=== PATIENT | female | born 1965 | race Caucasian/White ===

== ENCOUNTER → 2018-01-30 13:12 | Outpatient (CLI) | payer OTHER, MEDICAID, SELFPAY ==
--- NOTE | 2018-01-30 | DI.US.S_ITS ---
ULTRASOUND OF LEFT BREAST: 01/30/2018 CLINICAL: Left axillary pain. Comparison is made to exams dated: 01/30/2018 mammogram, 09/07/2015 mammogram, and 05/21/2014 mammogram - [facility]. Color flow ultrasound of the left breast was performed. Gomez scale images of the real-time examination were reviewed. IMPRESSION: NEGATIVE There is no sonographic evidence of malignancy. There is no abnormality seen in the right breast or in either axilla to correspond with the area of clinical concern in axillae, however, clinical followup is recommended. A 1 year screening mammogram is recommended. This exam was interpreted at Station ID: [id number]. Electronically Signed By: Mason jim/portia:01/30/2018 16:29:51 letter sent: Clinical Evaluation Ultrasound BI-RADS: 1 Negative
--- NOTE | 2018-01-30 13:13 | DI.MG.S_ITS ---
BILATERAL DIGITAL DIAGNOSTIC MAMMOGRAM 3D/2D: 01/30/2018 CLINICAL: Right breast lump and bilateral axilla pain. Comparison is made to exams dated: 09/07/2015 mammogram, 05/21/2014 mammogram, and 07/27/2011 mammogram - [facility]. There are scattered fibroglandular elements in both breasts. No significant masses, calcifications, or other findings are seen in either breast. IMPRESSION: INCOMPLETE: NEEDS ADDITIONAL IMAGING EVALUATION There is no abnormality seen in the right breast or in either axilla to correspond with the area of clinical concern in axillae, however, ultrasound is recommended. This exam was interpreted at Station ID: [id number]. NOTE: For mammograms, a report in lay terms will be sent to the patient. Approximately 15% of breast malignancies will not be visualized mammographically. In the management of a palpable breast mass, a negative mammogram must not discourage biopsy of a clinically suspicious lesion. Electronically Signed By: Mason jim/portia:01/30/2018 16:29:02 ACR BI-RADS Category 0: Incomplete [id number]
--- NOTE | 2018-01-30 13:13 | DI.US.S_ITS ---
ULTRASOUND OF RIGHT BREAST: 01/30/2018 CLINICAL: Palpable right breast lump. Comparison is made to exams dated: 01/30/2018 mammogram and 09/07/2015 mammogram - [facility]. Color flow ultrasound of the right breast was performed. Gomez scale images of the real-time examination were reviewed. IMPRESSION: NEGATIVE There is no sonographic evidence of malignancy. There is no abnormality seen in the right breast or in either axilla to correspond with the area of clinical concern in axillae, however, clinical followup is recommended. A 1 year screening mammogram is recommended. This exam was interpreted at Station ID: [id number]. Electronically Signed By: Mason jim/portia:01/30/2018 16:29:28 letter sent: Clinical Evaluation Ultrasound BI-RADS: 1 Negative
== END ==
PROVIDERS: Family Provider Family Medicine; PCP Family Medicine; Visit Provider Family Medicine
DX: R92.8 Other abnormal and inconclusive findings on diagnostic imaging of breast (principal); N63.10 Unspecified lump in the right breast, unspecified quadrant; M79.622 Pain in left upper arm; M79.621 Pain in right upper arm
CPT/HCPCS: 76642; 76882; 77066; G0279

== ENCOUNTER → 2018-09-18 19:42 | Outpatient (CLI) | payer OTHER, MEDICAID, SELFPAY ==
--- NOTE | 2018-09-18 19:48 | DI.RAD.S_ITS ---
PROCEDURE: XR LUMBAR SPINE 2-3V INDICATIONS: left hip pain TECHNIQUE: 3 views of the lumbar spine were acquired. COMPARISON: None. FINDINGS: Bones: 5 [id number] vertebrae are present. There is normal bony alignment. No vertebral body compression fractures. No suspicious bony lesions. There is severe facet arthropathy at L5-S1. Soft tissues: Overlying bowel gas pattern is normal. Vascular calcifications consistent with atherosclerosis. IMPRESSION: Severe facet arthropathy at L5-S1. Dictated by: Mega Brito M.D. on 09/19/2018 at 9:06 Approved by: Mega Brito M.D. on 09/19/2018 at 9:08
--- NOTE | 2018-09-18 19:48 | DI.RAD.S_ITS ---
PROCEDURE: XR HIP W PEL 3V INDICATIONS: left hip pain TECHNIQUE: AP pelvis with lateral view(s) of the right and left hip(s). COMPARISON: None. FINDINGS: Bones: No fractures or dislocations. Pelvic ring appears intact. Subtle lucency and cortical irregularity of the proximal femoral diaphysis. There is mild symmetric hip joint degeneration. Soft tissues: The visualized bowel gas pattern is normal. No suspicious soft tissue calcifications. IMPRESSION: 1. Subtle lucency and cortical irregularity of the proximal femoral diaphysis. MRI with and without contrast is suggested for further evaluation. 2. Mild symmetric hip joint degeneration bilaterally. Dictated by: Mega Briot M.D. on 09/19/2018 at 9:08 Approved by: Mega Brito M.D. on 09/19/2018 at 9:11
== END ==
PROVIDERS: PCP Family Medicine; Visit Provider Family Medicine
DX: M25.552 Pain in left hip (principal); M16.0 Bilateral primary osteoarthritis of hip; M47.817 Spondylosis without myelopathy or radiculopathy, lumbosacral region
CPT/HCPCS: 72100; 73522

== ENCOUNTER → 2018-10-07 15:45 | Outpatient (CLI) | payer OTHER, MEDICAID, SELFPAY ==
--- NOTE | 2018-10-07 15:49 | DI.MRI.S_ITS ---
PROCEDURE: MR HIP LT WO/W CON INDICATIONS: subtle lucency of left hip on xray, left hip pain TECHNIQUE: Noncontrast coronal T1 spin echo and STIR through the bony pelvis. Coronal and axial T2 fast spin echo with fat saturation, axial T1 spin echo with fat saturation, sagittal T1 spin echo, and oblique axial T2 fast spin echo with fat saturation through the hip. Post-contrast axial, coronal, and sagittal spin echo with fat saturation through the hip. COMPARISON: None. FINDINGS: Image quality: Excellent. Bones and joints: Mild osteoarthritic changes in bilateral hip joints are seen with joint space narrowing superiorly. There is marrow edema involving left femoral neck extending to hand And and superior portion of femoral head. No definite discrete fracture line is identified. Mild contrast enhancement in left femoral neck is seen. No other suspicious osseous enhancement. No other area of abnormal marrow signal. No avascular necrosis of the femoral heads. The visualized lower lumbar spine appears normally aligned. Tendons and ligaments: The gluteus medius and minimus tendons appear intact, without associated muscle atrophy. The nearby proximal iliotibial band also appears intact. The iliopsoas tendon appears intact, without adjacent bursal fluid collections or evidence for impingement syndrome. The origin of the hamstring tendon is intact at the ischial tuberosity, as well as the associated sacrotuberous ligament. The straight and reflected heads of the rectus femoris muscle origin appear intact, as well as the conjoint tendon. The ligamentum teres appears intact where visualized. Labrum and cartilage: The acetabular labrum appears intact in the absence of intra-articular contrast. Cartilage surface of the femoral head appears of normal thickness. The alpha angle of the femur is within normal limits at less than 55 degrees. Soft tissues: No suspicious soft tissue enhancement. Visualized muscles demonstrate normal bulk and internal signal. Quadratus femoris muscle demonstrates no internal edema to suggest ischiofemoral impingement. The proximal sciatic neurovascular bundle appears normal adjacent to the hamstring tendons. No free pelvic fluid. Bladder wall thickness is normal. Genitourinary structures and bowel loops appear normal where visualized. IMPRESSION: 1. Marrow edema involving left femoral neck as well as the upper portion of left femoral head. No definite discrete fracture line is seen. Finding could represent stress fracture in this region versus transient osteoporosis of left hip. Clinical correlation and followup MRI in 2-3 month is recommended. 2. Symmetric appearing mild bilateral hip joint osteophytes. No evidence of avascular necrosis of femoral heads. 3. Proximal left femoral shaft diaphysis appears normal in signal and cortical thickness. No periosteal reaction. No abnormal intraosseous enhancement. 4. No gross focal left hip labral tear. No gross left hip muscle or tendon signal abnormality. Dictated by: Basilio Page M.D. on 10/07/2018 at 16:52 Approved by: Basilio Page M.D. on 10/07/2018 at 17:03
== END ==
PROVIDERS: Family Provider Family Medicine; PCP Family Medicine; Visit Provider Family Medicine
DX: M25.552 Pain in left hip (principal); G89.29 Other chronic pain; M25.752 Osteophyte, left hip; M25.751 Osteophyte, right hip
CPT/HCPCS: 73723; A9579

== ENCOUNTER → 2018-11-12 15:53 | Outpatient (CLI) | payer OTHER, MEDICAID, SELFPAY | PROVIDERS: PCP Family Medicine; Visit Provider Family Medicine | DX: M25.552 Pain in left hip (principal); G89.29 Other chronic pain; R93.7 Abnormal findings on diagnostic imaging of other parts of musculoskeletal system; Z53.9 Procedure and treatment not carried out, unspecified reason ==

== ENCOUNTER 2018-12-01 13:23 | Emergency (ER) | payer OTHER, MEDICAID, SELFPAY ==
[2018-12-01 13:30] VITALS: BP 135/87; PULSE 85; RESP 20; TEMP 36.4; O2SAT 95; BMI 29.9
--- NOTE | 2018-12-01 15:00 | ED_ITS ---
HPI - Dental/Oral <MARGARITA Mcgee - Last Filed: 12/01/18 16:25> General Chief complaint: Dental/Oral Stated complaint: Front rt tooth loose, swelling Time Seen by Provider: 12/01/18 14:51 Source: patient and family Mode of arrival: ambulatory Limitations: no limitations History of Present Illness HPI Narrative: The patient is a 52-year-old female who is a current everyday smoker with history of osteoarthritis who presents with a chief complaint of right front tooth pain. She states she has had pain and swelling for 2 days. She has not followed up with a dentist. She is taking ibuprofen as well as her tramadol for this pain. She denies any overt measured fevers nausea vomiting diarrhea but states she feels flushed at times. She states the pain radiates up and it feels ?poofy Related Data Previous Rx's Medication Instructions Recorded tramadol 50 mg tablet 50 mg PO Q6H PRN #30 tab 10/23/18 penicillin V potassium 500 mg PO QID 10 Days #40 tab 12/01/18 Allergies Allergy/AdvReac Type Severity Reaction Status Date / Time Diphenhydramine Allergy Mild HIVES Uncoded 11/28/17 12:18 LANOLIN Allergy Mild RASH Uncoded 11/28/17 12:18 Review of Systems <MARGARITA Mcgee - Last Filed: 12/01/18 16:25> Review of Systems GENERAL: See HPI HEENT: See HPI RESPIRATORY: Denies dyspnea, cough, wheezing, hemoptysis, sputum. CARDIOVASCULAR: Denies chest pain, palpitations, orthopnea, edema, GASTROINTESTINAL: Denies nausea, vomiting, abdominal pain, diarrhea, constipation, melena. : Denies dysuria, frequency, incontinence, hematuria, urinary retention. MUSCULOSKELETAL: denies weakness, joint pain, or bony pain SKIN: Denies rash, skin lesions, or other NEUROLOGIC: Denies weakness, headache, numbness, change in speech, confusion, seizures, incoordination. PSYCHIATRIC: No concerning psychosocial issues. 12 point review of systems is negative except for those stated above PFSH <MARGARITA Mcgee - Last Filed: 12/01/18 16:25> Social History Smoking Status: Current every day smoker Social History Smoking Status: Current every day smoker Exam <MARGARITA Mcgee - Last Filed: 12/01/18 16:25> Narrative Exam Narrative: GENERAL: Elderly female lying on stretcher HEAD: Atraumatic. Normocephalic. No temporal or scalp tenderness. EYES: Pupils equal round and reactive. Extraocular motions intact. No scleral icterus. No injection or drainage. ENT: Nose without bleeding, purulent drainage or septal hematoma. Throat without erythema, tonsillar hypertrophy or exudate. Uvula midline. Airway patent. erythema and swelling noted superior to right front tooth. No obvious abscess. NECK: Trachea midline. No JVD or lymphadenopathy. Supple, nontender, no meninge al signs. CARDIOVASCULAR: Regular rate and rhythm without murmurs, gallops, or rubs. RESPIRATORY: Clear to auscultation. Breath sounds equal bilaterally. No wheezes, rales, or rhonchi. No cough. No increased respiratory effort. GASTROINTESTINAL: Abdomen soft, non-tender, nondistended. No hepato- splenomegaly, or palpable masses. No guarding. EXTREMITIES: No clubbing, cyanosis, or edema. No joint tenderness, effusion, or edema noted. BACK: Nontender without deformity or crepitance. No flank tenderness. NEURO: AOx3. SKIN: No rash or erythema. Initial Vital Signs Initial Vital Signs: Vital Signs Temperature 97.5 F L 12/01/18 13:30 Pulse Rate 85 12/01/18 13:30 Respiratory Rate 20 12/01/18 13:30 Blood Pressure 135/87 12/01/18 13:30 Pulse Oximetry 95 12/01/18 13:30 <Wandy Taylor MD - Last Filed: 12/01/18 18:34> Initial Vital Signs Initial Vital Signs: Vital Signs Temperature 97.5 F L 12/01/18 13:30 Pulse Rate 85 12/01/18 13:30 Respiratory Rate 20 12/01/18 13:30 Blood Pressure 135/87 12/01/18 13:30 Pulse Oximetry 95 12/01/18 13:30 Course <DAISHA Mcgee-BC - Last Filed: 12/01/18 16:25> Vital Signs - 8 hr 12/01/18 13:30 12/01/18 15:07 Temperature 97.5 F L 98.8 F Pulse Rate 85 93 H Respiratory Rate 20 18 Blood Pressure 135/87 Pulse Oximetry 95 96 <Wandy Taylor MD - Last Filed: 12/01/18 18:34> Vital Signs - 8 hr 12/01/18 13:30 12/01/18 15:07 Temperature 97.5 F L 98.8 F Pulse Rate 85 93 H Respiratory Rate 20 18 Blood Pressure 135/87 Pulse Oximetry 95 96 MDM - Dental/Oral <Celia HernandezSAMIA flynnP- - Last Filed: 12/01/18 16:25> MDM Narrative Medical decision making narrative: The patient is a 52-year-old female who presents with chief complaint of a possible dental infection. Given the erythema and swelling, believe this to be true. I will initiate treatment with penicillin at this point time. She is hemodynamically stable and denies systemic symptoms. There is no obvious abscess to drain. Discussed at length that she needs to follow up with a dentist. Discussed return precautions of fever, inability keep down fluids etc as well as acute concerns. Patient has no questions or concerns upon discharge. Discharge Plan Departure Patient Disposition: Home Clinical Impression: Dental infection Discharge Date/Time: 12/01/18 15:12 Interventions: ED Discharge Assessment Last Done: 12/01/18 15:07 Instructions: Tooth Abscess, DI for Dental Pain Activity Restrictions/Additional Instructions: Given her exam, I am going to treat you for a dental infection with antibiotics. Please follow up with a dentist as soon as possible. You can use [id number] medications as needed and able for pain as well as apply ice. Monitor for fever, inability keep down fluids and come back to the emergency department if you have any acute concerns such as chest pain, shortness of breath etc. Prescriptions: New penicillin V potassium 500 mg tablet 500 mg PO QID 10 Days Qty: 40 RF: 0 No Action tramadol 50 mg tablet 50 mg PO Q6H PRN (Reason: pain) Qty: 30 RF: 0 Referrals: Vinicio Christine MD [Primary Care Provider] -
[2018-12-01 15:07] VITALS: PULSE 93; RESP 18; TEMP 37.1; O2SAT 96
== END 2018-12-01 15:12 | disposition home or self-care (01) ==
PROVIDERS: Emergency Provider Nurse Practitioner Family; PCP Family Medicine
DX: K04.7 Periapical abscess without sinus (principal)
CPT/HCPCS: 99282; 99283

== ENCOUNTER → 2018-12-04 13:16 | Outpatient (CLI) | payer OTHER, MEDICAID, SELFPAY ==
--- NOTE | 2018-12-04 13:19 | DI.MRI.S_ITS ---
PROCEDURE: MR FEMUR LT WO/W CON INDICATIONS: left hip pain TECHNIQUE: Noncontrast coronal T1 spin echo and STIR, sagittal T1 spin echo with fat saturation and STIR, axial T1 spin echo and T2 fast spin echo with fat saturation. After the administration of contrast, axial/sagittal/coronal T1 spin echo with fat saturation through the pelvis and proximal and middle third of the femurs bilaterally. COMPARISON: [facility], MR, MR HIP LT WO/W CON, 10/07/2018, 16:02. [facility], CR, XR LUMBAR SPINE 2-3V, 09/18/2018, 19:58. [facility], CR, XR HIP W PEL IF DONE ASHLEY 3TO4V, 09/18/2018, 19:54. FINDINGS: Image quality: Excellent. Bones: At the left femoral head and neck there is a pattern of elevated fluid signal with a deficit of contrast enhancement at the femoral head subarticular surface with a sharp demarcation between the more edematous enhancing marrow space inferiorly and absence of significant enhancement more superiorly. The appearance is strongly suggestive of avascular necrosis as the underlying cause. Mild edema is present within the soft tissues immediately adjacent. Collapse of the femoral head/neck or subchondral cortex has not developed. A prior plain film that raise concern for abnormality within the proximal femoral diaphysis on the left, and this area has only minimal irregularity of the internal morphology of the proximal femur in a pattern potentially a manifestation of old fracture. There is a mild distortion of the curvature of the femoral cortex in this area most convincingly demonstrated on coronal T1 imaging series 3 image 25 and immediately adjacent both anteriorly and posteriorly. No underlying infection or neoplasm in this area is identified. Note is made of several small areas of focal subchondral marrow space edema along the upper border of the right femoral head, better seen by MR scanning that included centering on the pelvis 10/07/18. The volume of the involved subchondral marrow space is small on the right when compared to the appearance on the left. Soft tissues: No soft tissue masses are visualized. The scanned muscles demonstrate normal overall bulk and internal signal. Subcutaneous tissues appear normal as well. No abnormal soft tissue enhancement with sharp demarcation and associated marrow edema. IMPRESSION: 1. 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 There may be early impaction and distortion of the involved subchondral marrow space on the left but the general morphology of the articular surface remains intact. Note absence of contrast enhancement in the area of AVN. 2. There are several small confluent areas of early avascular necrosis involving the right subchondral cortex and medullary space, with associated marrow edema. No distortion of the articular curvature of the right femoral head is seen at this time. 3. A prior set of plain films had raised concern for whether some abnormality was present within the medullary space of the proximal diaphysis of the left femur. The current imaging raises concern for presence of an old fracture or other cause of cortical and medullary space distortion in that area of the proximal third of the diaphysis on the left but no marrow lesion is seen that would suggest underlying infection or neoplasm. Note: These findings were called immediately to Dr. Christine, and it is recommended to both obtain orthopedic surgical consultation and plain film imaging of each hip 4 reference to prior plain film imaging and to establish baseline targeted evaluation of the morphology of the articular surface over each femoral head at this time. Dictated by: Hunter Kent M.D. on 12/04/2018 at 14:41 Approved by: Hunter Kent M.D. on 12/04/2018 at 15:04
== END ==
PROVIDERS: PCP Family Medicine; Visit Provider Family Medicine
DX: M25.552 Pain in left hip (principal); M87.851 Other osteonecrosis, right femur; M15.8 Other polyosteoarthritis; G89.29 Other chronic pain; R93.89 Abnormal findings on diagnostic imaging of other specified body structures
CPT/HCPCS: 73720; A9579

== ENCOUNTER → 2018-12-11 10:50 | Outpatient (CLI) | payer OTHER, MEDICAID, SELFPAY ==
--- NOTE | 2018-12-11 11:07 | DI.NM.S_ITS ---
PROCEDURE: NM BONE SCAN WHOLE BODY RADIOPHARMACEUTICAL: 18.8 mCi Tc-99m MDP IV. INDICATIONS: hip pain, abnormal mr TECHNIQUE: Delayed whole-body scintigrams were obtained approximately 3-4 hours after intravenous injection of radiotracer. Anterior and posterior views were acquired from vertex to feet. Additional left and right oblique views of the pelvis and hips were obtained. COMPARISON: [facility], CR, XR HIP W PEL IF DONE ASHLEY 3TO4V, 09/18/2018, 19:54. [facility], MR, MR FEMUR LT WO/W CON, 12/04/2018, 13:26. [facility], MR, MR HIP LT WO/W CON, 10/07/2018, 16:02. [facility], CT, CT LE LT WO CON, 12/11/2018, 11:21. FINDINGS: There is increased activity in the left femoral head laterally, correlating with CT and MRI findings of avascular necrosis. Symmetrically increased activity is also seen in the distal femoral metaphyses bilaterally. Increased uptake in maxilla is likely related to dental disease. No lesions are identified in skull, sternum, clavicles, scapulae, ribs, bony pelvis, and visualized shafts of the long bones. There is low level increased uptake in cervical, thoracic and lumbar spine with distribution indistinguishable from degenerative disc and facet disease; early metastasis to spine could be obscured by degenerative changes. There are foci of increased periarticular activity involving shoulders, sternoclavicular joints, elbows, wrists and hands, hips, SI joints, knees and both ankles and feet, compatible with degenerative/arthritic changes. There is normal soft tissue uptake. IMPRESSION: 1. Increased activity in the left femoral head is consistent with CT and MRI finding of avascular necrosis. 2. Symmetrically increased uptake in the distal femoral metaphyses bilaterally. Recommend radiographic correlation. 3. Degenerative/arthritic changes in his spine and multiple peripheral joints. Radiographic correlation is maybe considered if clinically indicated. 4. Increased uptake in maxilla is most likely related to dental disease. Dictated by: Mega Brito M.D. on 12/11/2018 at 17:13 Approved by: Mega Brito M.D. on 12/11/2018 at 18:30
--- NOTE | 2018-12-11 11:26 | DI.CT.S_ITS ---
PROCEDURE: CT LE LT W CON INDICATIONS: CHRONIC LEFT HIP PAIN TECHNIQUE: Noncontrast 3 mm axial sections acquired through the bony pelvis. Additional 3 mm axial sections acquired through the symptomatic hip joint, with coronal and sagittal reformats. COMPARISON: [facility], CR, XR HIP W PEL IF DONE ASHLEY 3TO4V, 09/18/2018, 19:54. [facility], MR, MR HIP LT WO/W CON, 10/07/2018, 16:02. [facility], MR, MR FEMUR LT WO/W CON, 12/04/2018, 13:26. FINDINGS: Image quality: Excellent. Bones: With reference to the prior MR studies the avascular necrosis pattern at each femoral head has not appreciably worsened from 12/04/18. The area of subchondral/subcortical AVM at the left hip is larger than the 2 small foci on the right, and this measures up to 1.6 cm AP, and 3.1 cm transverse with a craniocaudad length of 1.3 cm. The 2 small foci on the left at the subcortical medullary space beneath the articular surface are best seen by the MR scanning but can be faintly visualized by CT scanning, measuring approximately 1.2 cm medially and 1.0 cm laterally in maximal transverse dimension. There is a slight impaction distortion of the articular surface of the left femoral head at the far lateral periphery of the area of AVN, indicating a slight impaction fracture in this area of weakness. This can be seen on series 5 image 97, and also further visualized on targeted left-sided imaging series 602 image 29. Soft tissues: No soft tissue inflammation, joint effusion, or hemorrhage. IMPRESSION: Stable appearance of bilateral avascular necrosis distortion of the medullary space of the humeral heads, more involved on the left than the right. As discussed there is a slight degree of articular margin distortion indicating likelihood of early impaction injury in the area of weakness along the lateral AVM margin, only depressed by approximately 1.5 mm. Dictated by: Hunter Kent M.D. on 12/11/2018 at 12:56 Approved by: Hunter Kent M.D. on 12/11/2018 at 13:03
== END ==
PROVIDERS: PCP Family Medicine; Visit Provider Family Medicine
DX: M25.552 Pain in left hip (principal); M87.852 Other osteonecrosis, left femur; R93.7 Abnormal findings on diagnostic imaging of other parts of musculoskeletal system; G89.29 Other chronic pain
CPT/HCPCS: 73700; 78306; A9503

== ENCOUNTER 2019-03-19 15:15 | Outpatient (RCR) | payer OTHER, MEDICAID, SELFPAY ==
--- NOTE | 2019-02-19 16:45 | PT.OIE ---
Current Diagnoses Pain in left hip (02/19/19) Stiffness of left hip, not elsewhere classified (02/19/19) Trochanteric bursitis, left hip (02/19/19) Iliotibial band syndrome, left leg (02/19/19) Idiopathic aseptic necrosis of unspecified femur (02/19/19) Provider Visit Care Team Role Provider Type Vinicio Christine MD Primary Care Provider Physician Specialty: Family Practice Address: [address] [place] [address], [id number] Email: [email or web address] Timmy Wilcox MD Attending Provider Physician Specialty: Orthopedic Surgery Address: [address] [place] [address], [id number] Email: [email or web address] Physical Therapy Initial Evaluation PT-OP-A Visit Information Start: 02/21/19 08:28 Freq: Status: Active Protocol: Document 02/19/19 16:00 DCW (Rec: 02/21/19 08:58 [facility] [id number]) Out-Patient Physical Therapy Visit Information Visit Information Visit Type Initial Evaluation Visit Start Time 16:00 Visit Stop Time 16:45 Total Visit Minutes 45 Visit Number 1 Number of YARN TEXTURE MACHINE OPERATOR Visits 0 Evaluation Information Evaluation Date 02/19/19 Precautions Precautions Bilateral avascular necrosis of femoral heads, 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 Therapist called [facility] and spoke with Dr Wilcox's MA on 02/19/19, informed there were no restrictions/contra- indications regarding pt's AVN . PT-OP-B Current Condition Start: 02/21/19 08:28 Freq: Status: Active Protocol: Document 02/19/19 16:00 DCW (Rec: 02/21/19 08:58 DC [id number]) Current Condition History of Current Condition Onset Date 5 months Current Complaints left hip pain and stiffness History of Current Condition Pt is a 53 year old female presenting with a five month history of left hip pain and stiffness. Pt notes that it just began one day with no warning, and was really bad in the beginning, but then over the next few months, it improved, however still occasionally gets really bad. Pt notes that today is a good day, and rates her pain at a 6/10. Pt reports pain is along her left lateral hip, left groin, and left posterior hip. 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 Pt complains that she has been unable to dance, and can only walk about four blocks before she needs to stop secondary to pain. Pt reports standing longer than 10 minutes is also painful, and she needs to sit and rest while doing any activity involving standing. Prior Treatments and Tests -Femur MRI 12/04/18: There is a characteristic appearance at the left femoral head/neck of moderate avascular necrosis.. .several small confluent areas of early avascular necrosis involving the right subchondral cortex and medullary space - Hunter Kent MD -Bone Scan Nuclear Medicine : Increased activity in the left femoral head is consistent with CT and MRI finding of avascular necrosis. - Mega Brito MD -LE CT Scan 12/11/18: Stable appearance of bilateral avascular necrosis distortion of the medullary space of the humeral heads, more involved on the left than the right. As discussed there is a slight degree of articular margin distortion indicating likelihood of early impaction injury in the area of weakness along the lateral AVM margin, only depressed by approximately 1.5 mm. - Hunter Kent MD Treatment Goals Patient/Caregiver Goals Pt would like to decrease hip pain, improve ambulation distance, and improve standing tolerance Prior Functional Status Baseline Function- ADL's Independent Baseline Function- Mobility Independent Current Functional Impairments (Reported) Functional Limitations- ADL's Unable to tolerate standing longer than ten minutes, impacts ability to perform ADLs such as dishes, cooking Functional Limitations- Mobility/Gait Ambulates with SPC, left antalgic gait, unable to tolerate more than 4 blocks PT-OP-C Subjective Start: 02/21/19 08:28 Freq: Status: Active Protocol: Document 02/19/19 16:00 DCW (Rec: 02/21/19 08:58 DCW [id number]) OP-PT Subjective Patient Comments Patient Comments It's gotten better since it started, but I still have really bad days where the pain is a 9/10 Patient Reported Progress Improving Patient Questionnaires Lower Extremity Functional Scale LEFS Score 23/80 = 28.75% LEFS Impairment 60 to 79% Impaired (Score 17- 31) OP-PT Pain Assessment Pain Assessment Grid Paper Pain Assessment Grid Completed Yes Location Left Hip Pain Location Details Left groin, lateral hip, posterior hip Intensity 7 Scale Used Numeric (1 - 10) Description Sharp Stabbing PT-OP-G Mobility & Gait Start: 02/21/19 08:28 Freq: Status: Active Protocol: Document 02/19/19 16:00 DCW (Rec: 02/21/19 10:53 [facility] [id number]) OP Gait Assessment Gait Gait Assistance Required: Independent Able to Maintain Weight Bearing Status Yes During Gait Assistive Devices Assistive Device Straight Cane Gait Deviations General Gait Pattern Antalgic Flexed Trunk Lateral Trunk Lean Factors Limiting Gait Function Factors Limiting Gait Function Limited Range of Motion Pain PT-OP-K Range of Motion Start: 02/21/19 08:28 Freq: Status: Active Protocol: Document 02/19/19 16:00 DCW (Rec: 02/21/19 10:53 [facility] [id number]) Hip Goniometric Range of Motion Hip Right Passive Hip ROM WFL No Testing Position Supine Left Passive Hip ROM WFL No Testing Position Supine Flexion w/Knee Flexed 86 Internal Rotation 0 External Rotation 36 Hip ROM Limitations Hip ROM Limitations Bony Restriction Muscle Weakness PT-OP-L Special Tests Start: 02/21/19 08:28 Freq: Status: Active Protocol: Document 02/19/19 16:00 DCW (Rec: 02/21/19 10:53 [facility] [id number]) Special Tests Hip Special Tests Scour Test Test Results Limited ROM secondary to pain Piriformis Test Results L, Piriformis tightness and pain Knee Special Tests Kameron's Test Test Results +L, ITB pain PT-OP-M Strength Start: 02/21/19 08:28 Freq: Status: Active Protocol: Document 02/19/19 16:00 DCW (Rec: 02/21/19 10:53 [facility] [id number]) Hip Strength Hip Manual Muscle Testing Right Flexion (L2) 4+ Good+ Abduction 4- Good- Adduction 4 Good External Rotation 4+ Good+ Internal Rotation 4+ Good+ Left Flexion (L2) 2+ Poor+ Abduction 4- Good- Adduction 4 Good External Rotation 4 Good Internal Rotation 3 Fair Comments Pain with resisted IR/ER, pt unable to perform IR against gravity due to bony restriction Knee Strength Knee Manual Muscle Testing Right Flexion (S2) 5 Normal Extension (L3) 5 Normal Left Flexion (S2) 4 Good Extension (L3) 4+ Good+ PT-OP-Q Treatments Start: 02/21/19 08:28 Freq: Status: Active Protocol: Document 02/19/19 16:00 DCW (Rec: 02/21/19 10:53 DCW [id number]) Therapeutic Exercises Sidelying Exercises Reverse Clamshell Sidelying Exercise Name Reverse clamshell Side left PT-OP-T Assessment and Plan Start: 02/21/19 08:28 Freq: Status: Active Protocol: Document 02/19/19 16:00 DCW (Rec: 02/21/19 11:13 DCW [id number]) Physical Therapy Assessment Rehab Potential Rehabilitation Potential Fair Evaluation Complexity Number of Personal Factors/Comorbidities 1-2 Number of Body Systems Impaired 3 Clinical Presentation at Evaluation Evolving Impairments Impairments Functional Activities Functional Mobility Gait Pain ROM Soft Tissue Mobility Strength Tone Goals Four Impairment Limited left internal rotation Mcc Goal (LTG) Pt to improve PROM of left internal rotation to 15? without increased pain. LTG Duration 04/22/19 Three Impairment Pt unable to tolerate standing longer than 10 minutes Mcc Goal (LTG) Pt to increase standing tolerance to 30 minutes to improve her ability to meal prep. LTG Duration 04/22/19 Two Impairment Pt unable to walk more than 4 blocks Mcc Goal (LTG) Pt to increase tolerance to ambulation to 10 blocks to improve her ability to walk to the store independently LTG Duration 04/22/19 One Impairment Pt does not have an appropriate home exercise program Short Term Goal (STG) Pt to be independent and compliant with an appropriate HEP STG Duration 03/22/19 Assessment Summary Assessment Pt is a 53 year old female presenting with left hip pain and stiffness. Pt has multiple ongoing issues, including the diagnosis of troncherantic bursitis, ITB tendonitis, and bilateral avascular necrosis in her femoral heads. Skilled therapy may be beneficial to improve pt's ROM and strength impairments, and improve her tolerance to ambulation and standing. PT will focus on STM , modalities, flexibility, standing/gait tolerance, and relief of inflammation. If pt does not respond to conservative treatment, she may need a return appointment to Ortho to address possible treatment options of AVN. Physical Therapy Plan Frequency and Duration Frequency of Treatment 2x/Week Duration of Treatment 10 weeks Plan of Care Start Date 02/19/19 Plan of Care End Date 04/30/19 Therapeutic Interventions Therapeutic Interventions Aquatic Therapy Home Exercise Program Joint Mobilizations Manual Therapy Patient/Caregiver Education Self-Care/Home Management Soft Tissue Mobilization Therapeutic Activities Therapeutic Exercises Modalities Cold Pack/Ice Massage Electric Stimulation Hot Packs Iontophoresis Ultrasound Other Therapeutic Interventions Iontophoresis /c Dexamethasone , 4 mg/mL Next Visit Focus/Plan Next Note Type Treatment Note Next Visit Plan Hip ROM/Strengthening, STM, pain-control modalities, Ionto
--- NOTE | 2019-02-19 16:45 | PT.OPPOC ---
Current Diagnoses Pain in left hip (02/19/19) Stiffness of left hip, not elsewhere classified (02/19/19) Trochanteric bursitis, left hip (02/19/19) Iliotibial band syndrome, left leg (02/19/19) Idiopathic aseptic necrosis of unspecified femur (02/19/19) Provider Visit Care Team Role Provider Type Vinicio Christine MD Primary Care Provider Physician Specialty: Family Practice Address: [address] [place] [address], [address] Email: [email or web address] Timmy Wilcox MD Attending Provider Physician Specialty: Orthopedic Surgery Address: [address] [place] [address], [phone] Email: [email or web address] Plan Of Care PT-OP-T Assessment and Plan Start: 02/21/19 08:28 Freq: Status: Active Protocol: Document 02/19/19 16:00 DCW (Rec: 02/21/19 11:13 DCW [id number]) Physical Therapy Assessment Rehab Potential Rehabilitation Potential Fair Evaluation Complexity Number of Personal Factors/Comorbidities 1-2 Number of Body Systems Impaired 3 Clinical Presentation at Evaluation Evolving Impairments Impairments Functional Activities Functional Mobility Gait Pain ROM Soft Tissue Mobility Strength Tone Goals Four Impairment Limited left internal rotation Food Service Order Clerk Goal (LTG) Pt to improve PROM of left internal rotation to 15? without increased pain. LTG Duration 04/22/19 Three Impairment Pt unable to tolerate standing longer than 10 minutes Jail Goal (LTG) Pt to increase standing tolerance to 30 minutes to improve her ability to meal prep. LTG Duration 04/22/19 Two Impairment Pt unable to walk more than 4 blocks Jail Goal (LTG) Pt to increase tolerance to ambulation to 10 blocks to improve her ability to walk to the store independently LTG Duration 04/22/19 One Impairment Pt does not have an appropriate home exercise program Short Term Goal (STG) Pt to be independent and compliant with an appropriate HEP STG Duration 03/22/19 Assessment Summary Assessment Pt is a 53 year old female presenting with left hip pain and stiffness. Pt has multiple ongoing issues, including the diagnosis of troncherantic bursitis, ITB tendonitis, and bilateral avascular necrosis in her femoral heads. Skilled therapy may be beneficial to improve pt's ROM and strength impairments, and improve her tolerance to ambulation and standing. PT will focus on STM , modalities, flexibility, standing/gait tolerance, and relief of inflammation. If pt does not respond to conservative treatment, she may need a return appointment to Ortho to address possible treatment options of AVN. Physical Therapy Plan Frequency and Duration Frequency of Treatment 2x/Week Duration of Treatment 10 weeks Plan of Care Start Date 02/19/19 Plan of Care End Date 04/30/19 Therapeutic Interventions Therapeutic Interventions Aquatic Therapy Home Exercise Program Joint Mobilizations Manual Therapy Patient/Caregiver Education Self-Care/Home Management Soft Tissue Mobilization Therapeutic Activities Therapeutic Exercises Modalities Cold Pack/Ice Massage Electric Stimulation Hot Packs Iontophoresis Ultrasound Other Therapeutic Interventions Iontophoresis /c Dexamethasone , 4 mg/mL Next Visit Focus/Plan Next Note Type Treatment Note Next Visit Plan Hip ROM/Strengthening, STM, pain-control modalities, Ionto Plan of Care Dates Plan of Care Start Date 02/19/19 Plan of Care End Date 04/30/19 Please Sign and Return: I have reviewed this Plan of Care and certify that the skilled therapy services above are required to meet the patient?s needs. Physician Signature Date Printed Name and Credentials Clinical Instructor Signature Printed Name and Credentials
--- NOTE | 2019-02-24 14:30 | PT.OTN ---
Current Diagnoses Pain in left hip (02/24/19) Stiffness of left hip, not elsewhere classified (02/24/19) Trochanteric bursitis, left hip (02/24/19) Iliotibial band syndrome, left leg (02/24/19) Idiopathic aseptic necrosis of unspecified femur (02/24/19) Physical Therapy Treatment Note PT-OP-A Visit Information Start: 02/21/19 08:28 Freq: Status: Active Protocol: Document 02/24/19 13:45 DCW (Rec: 02/24/19 14:30 DCW [id number]) Out-Patient Physical Therapy Visit Information Visit Information Visit Type Treatment Note Visit Start Time 13:45 Visit Stop Time 14:30 Total Visit Minutes 45 Visit Number 2 Number of CHIEF COMPLIANCE OFFICER Visits 0 Evaluation Information Evaluation Date 02/19/19 Precautions Precautions Bilateral avascular necrosis of femoral heads, 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 Therapist called [facility] and spoke with Dr Wilcox's MA on 02/19/19, informed there were no restrictions/contra- indications regarding pt's AVN . PT-OP-B Current Condition Start: 02/21/19 08:28 Freq: Status: Active Protocol: Document 02/19/19 16:00 DCW (Rec: 02/21/19 08:58 DCW [id number]) Current Condition History of Current Condition Onset Date 5 months Current Complaints left hip pain and stiffness History of Current Condition Pt is a 53 year old female presenting with a five month history of left hip pain and stiffness. Pt notes that it just began one day with no warning, and was really bad in the beginning, but then over the next few months, it improved, however still occasionally gets really bad. Pt notes that today is a good day, and rates her pain at a 6/10. Pt reports pain is along her left lateral hip, left groin, and left posterior hip. 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 Pt complains that she has been unable to dance, and can only walk about four blocks before she needs to stop secondary to pain. Pt reports standing longer than 10 minutes is also painful, and she needs to sit and rest while doing any activity involving standing. Prior Treatments and Tests -Femur MRI 12/04/18: There is a characteristic appearance at the left femoral head/neck of moderate avascular necrosis.. .several small confluent areas of early avascular necrosis involving the right subchondral cortex and medullary space - Hunter Kent MD -Bone Scan Nuclear Medicine : Increased activity in the left femoral head is consistent with CT and MRI finding of avascular necrosis. - Mega Brito MD -LE CT Scan 12/11/18: Stable appearance of bilateral avascular necrosis distortion of the medullary space of the humeral heads, more involved on the left than the right. As discussed there is a slight degree of articular margin distortion indicating likelihood of early impaction injury in the area of weakness along the lateral AVM margin, only depressed by approximately 1.5 mm. - Hunter Kent MD Treatment Goals Patient/Caregiver Goals Pt would like to decrease hip pain, improve ambulation distance, and improve standing tolerance Prior Functional Status Baseline Function- ADL's Independent Baseline Function- Mobility Independent Current Functional Impairments (Reported) Functional Limitations- ADL's Unable to tolerate standing longer than ten minutes, impacts ability to perform ADLs such as dishes, cooking Functional Limitations- Mobility/Gait Ambulates with SPC, left antalgic gait, unable to tolerate more than 4 blocks PT-OP-C Subjective Start: 02/21/19 08:28 Freq: Status: Active Protocol: Document 02/24/19 13:45 DCW (Rec: 02/24/19 14:30 DCW [id number]) OP-PT Subjective Patient Comments Patient Comments Pt reports her ride didn't show up today, so she had to walk the four blocks here to her appointment, and she is now pretty sore. She also notes that she was very sore after her evaluation, and could barely walk the next day . PT-OP-G Mobility & Gait Start: 02/21/19 08:28 Freq: Status: Active Protocol: Document 02/19/19 16:00 DCW (Rec: 02/21/19 10:53 DCW [id number]) OP Gait Assessment Gait Gait Assistance Required: Independent Able to Maintain Weight Bearing Status Yes During Gait Assistive Devices Assistive Device Straight Cane Gait Deviations General Gait Pattern Antalgic Flexed Trunk Lateral Trunk Lean Factors Limiting Gait Function Factors Limiting Gait Function Limited Range of Motion Pain PT-OP-K Range of Motion Start: 02/21/19 08:28 Freq: Status: Active Protocol: Document 02/19/19 16:00 DCW (Rec: 02/21/19 10:53 [id number] Hip Goniometric Range of Motion Hip Right Passive Hip ROM WFL No Testing Position Supine Left Passive Hip ROM WFL No Testing Position Supine Flexion w/Knee Flexed 86 Internal Rotation 0 External Rotation 36 Hip ROM Limitations Hip ROM Limitations Bony Restriction Muscle Weakness PT-OP-L Special Tests Start: 02/21/19 08:28 Freq: Status: Active Protocol: Document 02/19/19 16:00 DCW (Rec: 02/21/19 10:53 [id number] Special Tests Hip Special Tests Scour Test Test Results Limited ROM secondary to pain Piriformis Test Results L, Piriformis tightness and pain Knee Special Tests Kameron's Test Test Results +L, ITB pain PT-OP-M Strength Start: 02/21/19 08:28 Freq: Status: Active Protocol: Document 02/19/19 16:00 DCW (Rec: 02/21/19 10:53 [id number] Hip Strength Hip Manual Muscle Testing Right Flexion (L2) 4+ Good+ Abduction 4- Good- Adduction 4 Good External Rotation 4+ Good+ Internal Rotation 4+ Good+ Left Flexion (L2) 2+ Poor+ Abduction 4- Good- Adduction 4 Good External Rotation 4 Good Internal Rotation 3 Fair Comments Pain with resisted IR/ER, pt unable to perform IR against gravity due to bony restriction Knee Strength Knee Manual Muscle Testing Right Flexion (S2) 5 Normal Extension (L3) 5 Normal Left Flexion (S2) 4 Good Extension (L3) 4+ Good+ PT-OP-Q Treatments Start: 02/21/19 08:28 Freq: Status: Active Protocol: Document 02/24/19 13:45 DCW (Rec: 02/24/19 14:30 [facility] [id number]) Cardio Equipment Recumbent Bicycle Duration (Minutes) 1 Resistance 0 Other Pt unable to tolerate any pedaling motion Manual Therapy Treatment Soft Tissue Mobilization TFL Body Location L TFL Mobilization Type Myofascial Release Strumming Trigger Point Release Intensity/Depth Superficial Body Position Hooklying Psoas Body Location L Psoas Mobilization Type Strumming Sustained Pressure Intensity/Depth Moderate Body Position Hooklying Manual Traction Lower Extremity Details L acetabular joint Body Position Supine Comments gentle long-axis distraction Manual Techniques PROM Type Circumduction, ER/IR, Abduction PROM Body Position Supine PT-OP-R Modalities Start: 02/21/19 08:28 Freq: Status: Active Protocol: Document 02/24/19 13:45 DCW (Rec: 02/24/19 14:30 DCW [id number]) Electric Stimulation Electric Stimulation Interferential Current (IFC) Body Location Left lateral hip Duration (Minutes) 15 Patient Position Hooklying Combined With Heat/Cold Cold Pack PT-OP-T Assessment and Plan Start: 02/21/19 08:28 Freq: Status: Active Protocol: Document 02/24/19 13:45 DCW (Rec: 02/24/19 14:30 DCW [id number]) Physical Therapy Assessment Impairments Impairments Functional Activities Functional Mobility Gait Pain ROM Soft Tissue Mobility Strength Tone Goals Four Impairment Limited left internal rotation Marketing Reporting Analyst Goal (LTG) Pt to improve PROM of left internal rotation to 15? without increased pain. LTG Duration 04/22/19 Three Impairment Pt unable to tolerate standing longer than 10 minutes Halfway Goal (LTG) Pt to increase standing tolerance to 30 minutes to improve her ability to meal prep. LTG Duration 04/22/19 Two Impairment Pt unable to walk more than 4 blocks Marketing Reporting Analyst Goal (LTG) Pt to increase tolerance to ambulation to 10 blocks to improve her ability to walk to the store independently LTG Duration 04/22/19 One Impairment Pt does not have an appropriate home exercise program Short Term Goal (STG) Pt to be independent and compliant with an appropriate HEP STG Duration 03/22/19 Assessment Summary Assessment Pt unable to tolerate much of any physical or manual activity. Gentle traction and STM were the most pt could tolerate without increased complaints of pain, mainly along anterior hip and into groin. Trial of e-stim at end to hopefully control pain. Physical Therapy Plan Frequency and Duration Frequency of Treatment 2x/Week Duration of Treatment 10 weeks Plan of Care Start Date 02/19/19 Plan of Care End Date 04/30/19 Therapeutic Interventions Therapeutic Interventions Aquatic Therapy Home Exercise Program Joint Mobilizations Manual Therapy Patient/Caregiver Education Self-Care/Home Management Soft Tissue Mobilization Therapeutic Activities Therapeutic Exercises Modalities Cold Pack/Ice Massage Electric Stimulation Hot Packs Iontophoresis Ultrasound Other Therapeutic Interventions Iontophoresis /c Dexamethasone , 4 mg/mL Next Visit Focus/Plan Next Note Type Treatment Note Next Visit Plan Hip ROM/Strengthening, STM, pain-control modalities, Ionto
--- NOTE | 2019-02-26 16:06 | PT.OTN ---
Current Diagnoses Pain in left hip (02/26/19) Stiffness of left hip, not elsewhere classified (02/26/19) Trochanteric bursitis, left hip (02/26/19) Iliotibial band syndrome, left leg (02/26/19) Idiopathic aseptic necrosis of unspecified femur (02/26/19) Physical Therapy Treatment Note PT-OP-A Visit Information Start: 02/21/19 08:28 Freq: Status: Active Protocol: Document 02/26/19 16:00 SA (Rec: 02/26/19 16:06 SA [email or web address]) Out-Patient Physical Therapy Visit Information Visit Information Visit Type Treatment Note Visit Start Time 14:30 Visit Stop Time 15:15 Total Visit Minutes 45 Visit Number 3 Number of INDUSTRY ANALYST Visits 1 PT-OP-B Current Condition Start: 02/21/19 08:28 Freq: Status: Active Protocol: Document 02/19/19 16:00 DCW (Rec: 02/21/19 08:58 DCW [id number]) Current Condition History of Current Condition Onset Date 5 months Current Complaints left hip pain and stiffness History of Current Condition Pt is a 53 year old female presenting with a five month history of left hip pain and stiffness. Pt notes that it just began one day with no warning, and was really bad in the beginning, but then over the next few months, it improved, however still occasionally gets really bad. Pt notes that today is a good day, and rates her pain at a 6/10. Pt reports pain is along her left lateral hip, left groin, and left posterior hip. 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 Pt complains that she has been unable to dance, and can only walk about four blocks before she needs to stop secondary to pain. Pt reports standing longer than 10 minutes is also painful, and she needs to sit and rest while doing any activity involving standing. Prior Treatments and Tests -Femur MRI 12/04/18: There is a characteristic appearance at the left femoral head/neck of moderate avascular necrosis.. .several small confluent areas of early avascular necrosis involving the right subchondral cortex and medullary space - Hunter Kent MD -Bone Scan Nuclear Medicine : Increased activity in the left femoral head is consistent with CT and MRI finding of avascular necrosis. - Mega Brito MD -LE CT Scan 12/11/18: Stable appearance of bilateral avascular necrosis distortion of the medullary space of the humeral heads, more involved on the left than the right. As discussed there is a slight degree of articular margin distortion indicating likelihood of early impaction injury in the area of weakness along the lateral AVM margin, only depressed by approximately 1.5 mm. - Hunter Kent MD Treatment Goals Patient/Caregiver Goals Pt would like to decrease hip pain, improve ambulation distance, and improve standing tolerance Prior Functional Status Baseline Function- ADL's Independent Baseline Function- Mobility Independent Current Functional Impairments (Reported) Functional Limitations- ADL's Unable to tolerate standing longer than ten minutes, impacts ability to perform ADLs such as dishes, cooking Functional Limitations- Mobility/Gait Ambulates with SPC, left antalgic gait, unable to tolerate more than 4 blocks PT-OP-C Subjective Start: 02/21/19 08:28 Freq: Status: Active Protocol: Document 02/26/19 16:00 SA (Rec: 02/26/19 16:06 SA [email or web address]) OP-PT Subjective Patient Comments Patient Comments Pt reports feeling pretty good today, tolerated E-stim well last visit. PT-OP-G Mobility & Gait Start: 02/21/19 08:28 Freq: Status: Active Protocol: Document 02/19/19 16:00 DCW (Rec: 02/21/19 10:53 DCW [id number]) OP Gait Assessment Gait Gait Assistance Required: Independent Able to Maintain Weight Bearing Status Yes During Gait Assistive Devices Assistive Device Straight Cane Gait Deviations General Gait Pattern Antalgic Flexed Trunk Lateral Trunk Lean Factors Limiting Gait Function Factors Limiting Gait Function Limited Range of Motion Pain PT-OP-K Range of Motion Start: 02/21/19 08:28 Freq: Status: Active Protocol: Document 02/19/19 16:00 DCW (Rec: 02/21/19 10:53 DCW [id number]) Hip Goniometric Range of Motion Hip Right Passive Hip ROM WFL No Testing Position Supine Left Passive Hip ROM WFL No Testing Position Supine Flexion w/Knee Flexed 86 Internal Rotation 0 External Rotation 36 Hip ROM Limitations Hip ROM Limitations Bony Restriction Muscle Weakness PT-OP-L Special Tests Start: 02/21/19 08:28 Freq: Status: Active Protocol: Document 02/19/19 16:00 DCW (Rec: 02/21/19 10:53 [facility] [id number]) Special Tests Hip Special Tests Scour Test Test Results Limited ROM secondary to pain Piriformis Test Results L, Piriformis tightness and pain Knee Special Tests Kameron's Test Test Results +L, ITB pain PT-OP-M Strength Start: 02/21/19 08:28 Freq: Status: Active Protocol: Document 02/19/19 16:00 DCW (Rec: 02/21/19 10:53 [facility] [id number]) Hip Strength Hip Manual Muscle Testing Right Flexion (L2) 4+ Good+ Abduction 4- Good- Adduction 4 Good External Rotation 4+ Good+ Internal Rotation 4+ Good+ Left Flexion (L2) 2+ Poor+ Abduction 4- Good- Adduction 4 Good External Rotation 4 Good Internal Rotation 3 Fair Comments Pain with resisted IR/ER, pt unable to perform IR against gravity due to bony restriction Knee Strength Knee Manual Muscle Testing Right Flexion (S2) 5 Normal Extension (L3) 5 Normal Left Flexion (S2) 4 Good Extension (L3) 4+ Good+ PT-OP-Q Treatments Start: 02/21/19 08:28 Freq: Status: Active Protocol: Document 02/26/19 16:00 SA (Rec: 02/26/19 16:06 SA [email or web address]) Therapeutic Exercises Supine Exercises HS stretching Side bilateral Reps/Minutes 30 x 2 each Comments passive knee rocks Side bilateral Reps/Minutes 6x Comments limited motion/tolerance Bridging Side bilateral Reps/Minutes 12x hip ABD Side left Reps/Minutes 8x Manual Therapy Treatment Soft Tissue Mobilization TFL Body Location L TFL Mobilization Type Myofascial Release Strumming Trigger Point Release Intensity/Depth Superficial Body Position Hooklying Psoas Body Location L Psoas Mobilization Type Strumming Sustained Pressure Intensity/Depth Moderate Body Position Hooklying Manual Techniques PROM Type Circumduction, ER/IR, Abduction PROM Body Position Supine PT-OP-R Modalities Start: 02/21/19 08:28 Freq: Status: Active Protocol: Document 02/26/19 16:00 SA (Rec: 02/26/19 16:06 SA [email or web address]) Electric Stimulation Electric Stimulation Interferential Current (IFC) Body Location Left lateral hip Duration (Minutes) 15 Patient Position Sidelying Combined With Heat/Cold Cold Pack PT-OP-T Assessment and Plan Start: 02/21/19 08:28 Freq: Status: Active Protocol: Document 02/26/19 16:00 SA (Rec: 02/26/19 16:06 SA [email or web address]) Physical Therapy Assessment Assessment Summary Assessment Slightly improved tolerance of manual therapy and gentle hip exercise. L lateral hip is most painful with exercise. Physical Therapy Plan Next Visit Focus/Plan Next Note Type Treatment Note Next Visit Plan Hip ROM/Strengthening, STM, pain-control modalities, Ionto
--- NOTE | 2019-03-12 16:26 | PT.OTN ---
Current Diagnoses Pain in left hip (03/12/19) Stiffness of left hip, not elsewhere classified (03/12/19) Trochanteric bursitis, left hip (03/12/19) Iliotibial band syndrome, left leg (03/12/19) Idiopathic aseptic necrosis of unspecified femur (03/12/19) Physical Therapy Treatment Note PT-OP-A Visit Information Start: 02/21/19 08:28 Freq: Status: Active Protocol: Document 03/12/19 16:22 SA (Rec: 03/12/19 16:26 SA [email or web address]) Out-Patient Physical Therapy Visit Information Visit Information Visit Type Treatment Note Visit Start Time 15:15 Visit Stop Time 16:01 Total Visit Minutes 46 Visit Number 4 Number of FINANCIAL PROJECT MANAGER Visits 2 PT-OP-B Current Condition Start: 02/21/19 08:28 Freq: Status: Active Protocol: Document 02/19/19 16:00 DCW (Rec: 02/21/19 08:58 DCW [id number]) Current Condition History of Current Condition Onset Date 5 months Current Complaints left hip pain and stiffness History of Current Condition Pt is a 53 year old female presenting with a five month history of left hip pain and stiffness. Pt notes that it just began one day with no warning, and was really bad in the beginning, but then over the next few months, it improved, however still occasionally gets really bad. Pt notes that today is a good day, and rates her pain at a 6/10. Pt reports pain is along her left lateral hip, left groin, and left posterior hip. 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 Pt complains that she has been unable to dance, and can only walk about four blocks before she needs to stop secondary to pain. Pt reports standing longer than 10 minutes is also painful, and she needs to sit and rest while doing any activity involving standing. Prior Treatments and Tests -Femur MRI 12/04/18: There is a characteristic appearance at the left femoral head/neck of moderate avascular necrosis.. .several small confluent areas of early avascular necrosis involving the right subchondral cortex and medullary space - Hunter Kent MD -Bone Scan Nuclear Medicine : Increased activity in the left femoral head is consistent with CT and MRI finding of avascular necrosis. - Mega Brito MD -LE CT Scan 12/11/18: Stable appearance of bilateral avascular necrosis distortion of the medullary space of the humeral heads, more involved on the left than the right. As discussed there is a slight degree of articular margin distortion indicating likelihood of early impaction injury in the area of weakness along the lateral AVM margin, only depressed by approximately 1.5 mm. - Hunter Kent MD Treatment Goals Patient/Caregiver Goals Pt would like to decrease hip pain, improve ambulation distance, and improve standing tolerance Prior Functional Status Baseline Function- ADL's Independent Baseline Function- Mobility Independent Current Functional Impairments (Reported) Functional Limitations- ADL's Unable to tolerate standing longer than ten minutes, impacts ability to perform ADLs such as dishes, cooking Functional Limitations- Mobility/Gait Ambulates with SPC, left antalgic gait, unable to tolerate more than 4 blocks PT-OP-C Subjective Start: 02/21/19 08:28 Freq: Status: Active Protocol: Document 03/12/19 16:22 SA (Rec: 03/12/19 16:26 SA [email or web address]) OP-PT Subjective Patient Comments Patient Comments Was a little sore after last visit but expected that. PT-OP-G Mobility & Gait Start: 02/21/19 08:28 Freq: Status: Active Protocol: Document 02/19/19 16:00 DCW (Rec: 02/21/19 10:53 DCW [id number]) OP Gait Assessment Gait Gait Assistance Required: Independent Able to Maintain Weight Bearing Status Yes During Gait Assistive Devices Assistive Device Straight Cane Gait Deviations General Gait Pattern Antalgic Flexed Trunk Lateral Trunk Lean Factors Limiting Gait Function Factors Limiting Gait Function Limited Range of Motion Pain PT-OP-K Range of Motion Start: 02/21/19 08:28 Freq: Status: Active Protocol: Document 02/19/19 16:00 DCW (Rec: 02/21/19 10:53 DCW [id number]) Hip Goniometric Range of Motion Hip Right Passive Hip ROM WFL No Testing Position Supine Left Passive Hip ROM WFL No Testing Position Supine Flexion w/Knee Flexed 86 Internal Rotation 0 External Rotation 36 Hip ROM Limitations Hip ROM Limitations Bony Restriction Muscle Weakness PT-OP-L Special Tests Start: 02/21/19 08:28 Freq: Status: Active Protocol: Document 02/19/19 16:00 DCW (Rec: 07/05/19 10:53 [facility] [id number]) Special Tests Hip Special Tests Scour Test Test Results Limited ROM secondary to pain Piriformis Test Results L, Piriformis tightness and pain Knee Special Tests Kameron's Test Test Results +L, ITB pain PT-OP-M Strength Start: 02/21/19 08:28 Freq: Status: Active Protocol: Document 02/19/19 16:00 DCW (Rec: 02/21/19 10:53 [facility] [id number]) Hip Strength Hip Manual Muscle Testing Right Flexion (L2) 4+ Good+ Abduction 4- Good- Adduction 4 Good External Rotation 4+ Good+ Internal Rotation 4+ Good+ Left Flexion (L2) 2+ Poor+ Abduction 4- Good- Adduction 4 Good External Rotation 4 Good Internal Rotation 3 Fair Comments Pain with resisted IR/ER, pt unable to perform IR against gravity due to bony restriction Knee Strength Knee Manual Muscle Testing Right Flexion (S2) 5 Normal Extension (L3) 5 Normal Left Flexion (S2) 4 Good Extension (L3) 4+ Good+ PT-OP-Q Treatments Start: 02/21/19 08:28 Freq: Status: Active Protocol: Document 03/12/19 16:22 SA (Rec: 03/12/19 16:26 SA [email or web address]) Therapeutic Exercises Supine Exercises PPT w/ core activation Reps/Minutes 12 x 5 HS stretching Side bilateral Reps/Minutes 30 x 2 each Comments passive knee rocks Side bilateral Reps/Minutes 8x Comments limited motion/tolerance Bridging Side bilateral Reps/Minutes 12x hip ABD Side left Reps/Minutes 8x Sidelying Exercises Clamshell Side left Reps/Minutes 15x Reverse Clamshell Sidelying Exercise Name Reverse clamshell Side left Reps/Minutes 15x Manual Therapy Treatment Soft Tissue Mobilization TFL Body Location L TFL Mobilization Type Myofascial Release Strumming Trigger Point Release Intensity/Depth Superficial Body Position Hooklying Psoas Body Location L Psoas Mobilization Type Strumming Sustained Pressure Intensity/Depth Moderate Body Position Hooklying Manual Traction Lower Extremity Details L acetabular joint Comments gentle long-axis distraction PT-OP-R Modalities Start: 02/21/19 08:28 Freq: Status: Active Protocol: Document 03/12/19 16:22 SA (Rec: 03/12/19 16:26 SA [email or web address]) Electric Stimulation Electric Stimulation Interferential Current (IFC) Body Location Left lateral hip Duration (Minutes) 15 Patient Position Sidelying Combined With Heat/Cold Cold Pack PT-OP-T Assessment and Plan Start: 02/21/19 08:28 Freq: Status: Active Protocol: Document 03/12/19 16:22 SA (Rec: 03/12/19 16:26 SA [email or web address]) Physical Therapy Assessment Assessment Summary Assessment Handout for HEP provided, focused on hip/core strengthening. Pt reports come relief with e-stim and CP. Physical Therapy Plan Next Visit Focus/Plan Next Note Type Treatment Note Next Visit Plan Hip ROM/Strengthening, STM, pain-control modalities, Ionto
--- NOTE | 2019-03-19 17:28 | PT.OTN ---
Current Diagnoses Pain in left hip (03/19/19) Stiffness of left hip, not elsewhere classified (03/19/19) Trochanteric bursitis, left hip (03/19/19) Iliotibial band syndrome, left leg (03/19/19) Idiopathic aseptic necrosis of unspecified femur (03/19/19) Physical Therapy Treatment Note PT-OP-A Visit Information Start: 02/21/19 08:28 Freq: Status: Active Protocol: Document 03/19/19 15:25 HH (Rec: 03/19/19 17:28 HH [email or web address]) Out-Patient Physical Therapy Visit Information Visit Information Visit Type Treatment Note Visit Start Time 15:25 Visit Stop Time 16:00 Total Visit Minutes 35 Visit Number 5 Number of PATENT LAWYER Visits 0 PT-OP-B Current Condition Start: 02/21/19 08:28 Freq: Status: Active Protocol: Document 02/19/19 16:00 DCW (Rec: 02/21/19 08:58 DCW [id number]) Current Condition History of Current Condition Onset Date 5 months Current Complaints left hip pain and stiffness History of Current Condition Pt is a 53 year old female presenting with a five month history of left hip pain and stiffness. Pt notes that it just began one day with no warning, and was really bad in the beginning, but then over the next few months, it improved, however still occasionally gets really bad. Pt notes that today is a good day, and rates her pain at a 6/10. Pt reports pain is along her left lateral hip, left groin, and left posterior hip. 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 Pt complains that she has been unable to dance, and can only walk about four blocks before she needs to stop secondary to pain. Pt reports standing longer than 10 minutes is also painful, and she needs to sit and rest while doing any activity involving standing. Prior Treatments and Tests -Femur MRI 12/04/18: There is a characteristic appearance at the left femoral head/neck of moderate avascular necrosis.. .several small confluent areas of early avascular necrosis involving the right subchondral cortex and medullary space - Hunter Kent MD -Bone Scan Nuclear Medicine : Increased activity in the left femoral head is consistent with CT and MRI finding of avascular necrosis. - Mega Brito MD -LE CT Scan 12/11/18: Stable appearance of bilateral avascular necrosis distortion of the medullary space of the humeral heads, more involved on the left than the right. As discussed there is a slight degree of articular margin distortion indicating likelihood of early impaction injury in the area of weakness along the lateral AVM margin, only depressed by approximately 1.5 mm. - Hunter Kent MD Treatment Goals Patient/Caregiver Goals Pt would like to decrease hip pain, improve ambulation distance, and improve standing tolerance Prior Functional Status Baseline Function- ADL's Independent Baseline Function- Mobility Independent Current Functional Impairments (Reported) Functional Limitations- ADL's Unable to tolerate standing longer than ten minutes, impacts ability to perform ADLs such as dishes, cooking Functional Limitations- Mobility/Gait Ambulates with SPC, left antalgic gait, unable to tolerate more than 4 blocks PT-OP-C Subjective Start: 02/21/19 08:28 Freq: Status: Active Protocol: Document 03/19/19 15:25 HH (Rec: 03/19/19 17:28 HH [email or web address]) OP-PT Subjective Patient Comments Patient Comments Was a little sore after last visit. PT-OP-G Mobility & Gait Start: 02/21/19 08:28 Freq: Status: Active Protocol: Document 02/19/19 16:00 DCW (Rec: 02/21/19 10:53 DCW [id number]) OP Gait Assessment Gait Gait Assistance Required: Independent Able to Maintain Weight Bearing Status Yes During Gait Assistive Devices Assistive Device Straight Cane Gait Deviations General Gait Pattern Antalgic Flexed Trunk Lateral Trunk Lean Factors Limiting Gait Function Factors Limiting Gait Function Limited Range of Motion Pain PT-OP-K Range of Motion Start: 02/21/19 08:28 Freq: Status: Active Protocol: Document 02/19/19 16:00 DCW (Rec: 02/21/19 10:53 DCW [id number]) Hip Goniometric Range of Motion Hip Right Passive Hip ROM WFL No Testing Position Supine Left Passive Hip ROM WFL No Testing Position Supine Flexion w/Knee Flexed 86 Internal Rotation 0 External Rotation 36 Hip ROM Limitations Hip ROM Limitations Bony Restriction Muscle Weakness PT-OP-L Special Tests Start: 02/21/19 08:28 Freq: Status: Active Protocol: Document 02/19/19 16:00 DCW (Rec: 02/21/19 10:53 DCW [id number]) Special Tests Hip Special Tests Scour Test Test Results Limited ROM secondary to pain Piriformis Test Results L, Piriformis tightness and pain Knee Special Tests Kameron's Test Test Results +L, ITB pain PT-OP-M Strength Start: 02/21/19 08:28 Freq: Status: Active Protocol: Document 02/19/19 16:00 DCW (Rec: 02/21/19 10:53 DCW [id number]) Hip Strength Hip Manual Muscle Testing Right Flexion (L2) 4+ Good+ Abduction 4- Good- Adduction 4 Good External Rotation 4+ Good+ Internal Rotation 4+ Good+ Left Flexion (L2) 2+ Poor+ Abduction 4- Good- Adduction 4 Good External Rotation 4 Good Internal Rotation 3 Fair Comments Pain with resisted IR/ER, pt unable to perform IR against gravity due to bony restriction Knee Strength Knee Manual Muscle Testing Right Flexion (S2) 5 Normal Extension (L3) 5 Normal Left Flexion (S2) 4 Good Extension (L3) 4+ Good+ PT-OP-Q Treatments Start: 02/21/19 08:28 Freq: Status: Active Protocol: Document 03/19/19 15:25 HH (Rec: 03/19/19 17:28 HH [email or web address]) Therapeutic Exercises Supine Exercises PPT w/ core activation Reps/Minutes 12 x 5 knee rocks Side bilateral Reps/Minutes 8x Comments limited motion/tolerance Bridging Side bilateral Reps/Minutes 12x hip ABD Side left Reps/Minutes 8x Sidelying Exercises Clamshell Side left Reps/Minutes 15x Reverse Clamshell Sidelying Exercise Name Reverse clamshell Side left Reps/Minutes 15x Gait Training Gait Activity level surface Description on yoga mat Device Used on yoga mat Distance/Duration 10 mins Comments focus on heel strike and stance phase. PT-OP-R Modalities Start: 02/21/19 08:28 Freq: Status: Active Protocol: Document 03/12/19 16:22 SA (Rec: 03/12/19 16:26 SA [email or web address]) Electric Stimulation Electric Stimulation Interferential Current (IFC) Body Location Left lateral hip Duration (Minutes) 15 Patient Position Sidelying Combined With Heat/Cold Cold Pack PT-OP-T Assessment and Plan Start: 07/05/19 08:28 Freq: Status: Active Protocol: Document 03/19/19 15:25 HH (Rec: 03/19/19 17:28 HH [email or web address]) Physical Therapy Assessment Assessment Summary Assessment Pt cont to show very sensitive to pressure and movement at her L trochanteric region. Introduced gait training to pt today and focused on stance phase on L and heel strike. Physical Therapy Plan Next Visit Focus/Plan Next Note Type Treatment Note Next Visit Plan Hip ROM/Strengthening, STM, pain-control modalities, Ionto
--- NOTE | 2019-03-26 16:17 | PT-OP ANOTE ---
Pt arrived for her appointment 15 m inutes late, reported her hip felt much better, [place] and didn't even need her cane. She had a follow-up with Dr Wilcox, who said she was doing much better and could discharge from therapy, and then questioned if it was even necessary for her to be here today. Pt then decided to discharge without an appointment today and left.
--- NOTE | 2019-03-26 16:21 | PT.OPDS ---
Current Diagnoses Pain in left hip (03/26/19) Stiffness of left hip, not elsewhere classified (03/26/19) Trochanteric bursitis, left hip (03/26/19) Iliotibial band syndrome, left leg (03/26/19) Idiopathic aseptic necrosis of unspecified femur (03/26/19) Provider Visit Care Team Role Provider Type Vinicio Christine MD Primary Care Provider Physician Specialty: Family Practice Address: [address] [place] [address], [id number] Email: [email or web address] Timmy Wilcox MD Attending Provider Physician Specialty: Orthopedic Surgery Address: [address] [place] [address], [id number] Email: [email or web address] Visit Number Visit Number 5 Discharge Summary PT-OP-B Current Condition Start: 02/21/19 08:28 Freq: Status: Active Protocol: Document 02/19/19 16:00 DCW (Rec: 02/21/19 08:58 DCW [id number]) Current Condition History of Current Condition Onset Date 5 months Current Complaints left hip pain and stiffness History of Current Condition Pt is a 53 year old female presenting with a five month history of left hip pain and stiffness. Pt notes that it just began one day with no warning, and was really bad in the beginning, but then over the next few months, it improved, however still occasionally gets really bad. Pt notes that today is a good day, and rates her pain at a 6/10. Pt reports pain is along her left lateral hip, left groin, and left posterior hip. 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 Pt complains that she has been unable to dance, and can only walk about four blocks before she needs to stop secondary to pain. Pt reports standing longer than 10 minutes is also painful, and she needs to sit and rest while doing any activity involving standing. Prior Treatments and Tests -Femur MRI 12/04/18: There is a characteristic appearance at the left femoral head/neck of moderate avascular necrosis.. .several small confluent areas of early avascular necrosis involving the right subchondral cortex and medullary space - Hunter Kent MD -Bone Scan Nuclear Medicine : Increased activity in the left femoral head is consistent with CT and MRI finding of avascular necrosis. - Mega Brito MD -LE CT Scan 12/11/18: Stable appearance of bilateral avascular necrosis distortion of the medullary space of the humeral heads, more involved on the left than the right. As discussed there is a slight degree of articular margin distortion indicating likelihood of early impaction injury in the area of weakness along the lateral AVM margin, only depressed by approximately 1.5 mm. - Hunter Kent MD Treatment Goals Patient/Caregiver Goals Pt would like to decrease hip pain, improve ambulation distance, and improve standing tolerance Prior Functional Status Baseline Function- ADL's Independent Baseline Function- Mobility Independent Current Functional Impairments (Reported) Functional Limitations- ADL's Unable to tolerate standing longer than ten minutes, impacts ability to perform ADLs such as dishes, cooking Functional Limitations- Mobility/Gait Ambulates with SPC, left antalgic gait, unable to tolerate more than 4 blocks PT-OP-C Subjective Start: 02/21/19 08:28 Freq: Status: Active Protocol: Document 03/19/19 15:25 HH (Rec: 03/19/19 17:28 HH [id number]) OP-PT Subjective Patient Comments Patient Comments Was a little sore after last visit. PT-OP-G Mobility & Gait Start: 02/21/19 08:28 Freq: Status: Active Protocol: Document 02/19/19 16:00 DCW (Rec: 02/21/19 10:53 DCW [id number]) OP Gait Assessment Gait Gait Assistance Required: Independent Able to Maintain Weight Bearing Status Yes During Gait Assistive Devices Assistive Device Straight Cane Gait Deviations General Gait Pattern Antalgic Flexed Trunk Lateral Trunk Lean Factors Limiting Gait Function Factors Limiting Gait Function Limited Range of Motion Pain PT-OP-K Range of Motion Start: 02/21/19 08:28 Freq: Status: Active Protocol: Document 02/19/19 16:00 DCW (Rec: 02/21/19 10:53 DCW [id number]) Hip Goniometric Range of Motion Hip Right Passive Hip ROM WFL No Testing Position Supine Left Passive Hip ROM WFL No Testing Position Supine Flexion w/Knee Flexed 86 Internal Rotation 0 External Rotation 36 Hip ROM Limitations Hip ROM Limitations Bony Restriction Muscle Weakness PT-OP-L Special Tests Start: 02/21/19 08:28 Freq: Status: Active Protocol: Document 02/19/19 16:00 DCW (Rec: 02/21/19 10:53 [facility] [id number]) Special Tests Hip Special Tests Scour Test Test Results Limited ROM secondary to pain Piriformis Test Results L, Piriformis tightness and pain Knee Special Tests Kameron's Test Test Results +L, ITB pain PT-OP-M Strength Start: 02/21/19 08:28 Freq: Status: Active Protocol: Document 02/19/19 16:00 DCW (Rec: 02/21/19 10:53 [facility] [id number]) Hip Strength Hip Manual Muscle Testing Right Flexion (L2) 4+ Good+ Abduction 4- Good- Adduction 4 Good External Rotation 4+ Good+ Internal Rotation 4+ Good+ Left Flexion (L2) 2+ Poor+ Abduction 4- Good- Adduction 4 Good External Rotation 4 Good Internal Rotation 3 Fair Comments Pain with resisted IR/ER, pt unable to perform IR against gravity due to bony restriction Knee Strength Knee Manual Muscle Testing Right Flexion (S2) 5 Normal Extension (L3) 5 Normal Left Flexion (S2) 4 Good Extension (L3) 4+ Good+ PT-OP-T Assessment and Plan Start: 02/21/19 08:28 Freq: Status: Active Protocol: Document 03/26/19 16:20 DCW (Rec: 03/26/19 16:21 DCW [id number]) Physical Therapy Assessment Goals Four Impairment Limited left internal rotation Skilled Nursing Goal (LTG) Pt to improve PROM of left internal rotation to 15? without increased pain. LTG Duration 04/22/19 Three Impairment Pt unable to tolerate standing longer than 10 minutes Manager Long Term Care Goal (LTG) Pt to increase standing tolerance to 30 minutes to improve her ability to meal prep. LTG Duration 04/22/19 Two Impairment Pt unable to walk more than 4 blocks Skilled Nursing Goal (LTG) Pt to increase tolerance to ambulation to 10 blocks to improve her ability to walk to the store independently LTG Duration 04/22/19 One Impairment Pt does not have an appropriate home exercise program Short Term Goal (STG) Pt to be independent and compliant with an appropriate HEP STG Duration 03/22/19 Assessment Summary Assessment Pt arrived for her appointment 15 minutes late, reported her hip felt much better, [place] and didn't even need her cane. She had a follow-up with Dr Wilcox yesterday, who said she was doing much better and could discharge from therapy. Pt then questioned if it was even necessary for her to be here today. Pt decided to discharge without an appointment today and left. Physical Therapy Plan Discharge Physical Therapy Discharge Reasons Patient Request Next Visit Focus/Plan Next Note Type Discharge Summary
== END 2019-04-02 14:00 | disposition home or self-care (01) ==
LOC: PHYS 15:15
PROVIDERS: PCP Family Medicine; Visit Provider Orthopaedic Surgery
DX: M70.62 Trochanteric bursitis, left hip (principal); M76.32 Iliotibial band syndrome, left leg; M87.059 Idiopathic aseptic necrosis of unspecified femur; M25.552 Pain in left hip; M25.652 Stiffness of left hip, not elsewhere classified
CPT/HCPCS: 97014; 97110; 97116; 97140; 97162; G0283

== ENCOUNTER 2020-01-26 11:14 | Emergency (ER) | payer OTHER, MEDICAID, SELFPAY ==
[2020-01-26] VITALS (9 sets, daily range): BP systolic 106–139; BP diastolic 62–88; PULSE 85–100; RESP 16–30; TEMP 37.4; O2SAT 93–98
--- NOTE | 2020-01-26 11:40 | DI.RAD.S_ITS ---
PROCEDURE: XR CHEST 1V INDICATIONS: chest pain TECHNIQUE: One view of the chest was acquired. COMPARISON: [facility], , CHEST 2 VIEW, 04/20/2012, 0:18. FINDINGS: Surgical changes and devices: None. Lungs and pleura: Lungs are clear. No pleural effusions or pneumothorax. Mediastinum: Mediastinal contours appear normal. Heart size is borderline enlarged, likely exaggerated by portable technique. Bones and chest wall: No suspicious bony lesions. Overlying soft tissues appear unremarkable. IMPRESSION: No acute cardiopulmonary process is evident. Dictated by: Josh Sarkar M.D. on 01/26/2020 at 11:19 Approved by: Josh Sarkar M.D. on 01/26/2020 at 11:21
[2020-01-26 11:56] LABS: Add Manual Diff / Slide Review NO; Basophils Absolute Auto 100 /uL (0-100); Basophils Percent Auto 0.7 % (0-2); Eosinophils Absolute Auto 0 /uL (0-450); Eosinophils Percent Auto 0.3 % (2-4); Hematocrit 41.7 % (36-46); Hemoglobin 14.7 g/dL (12.0-16.0); Lymphocytes Absolute Auto 1800 /uL (1100-4500); Lymphocytes Percent Auto 12.4 % (25-40); Mean Corpuscular HGB Conc 35.2 % (30-36); Mean Corpuscular Hemoglobin 32.8 PG (26-34); Mean Corpuscular Volume 93.4 fL (80-100); Monocytes Absolute Auto 800 /uL (0-900); Monocytes Percent Auto 5.7 % (3-14); Neutrophils Absolute Auto 11600 /uL (1500-7000); Neutrophils Percent Auto 80.9 % (50-75); Platelet Count 259 X10^3/uL (150-400); Red Blood Cell Count 4.46 X10^6/uL (4.0-5.2); Red Cell Distribution Width 12.7 % (11.6-14.8); White Blood Cell Count 14.4 X10^3/uL (4.5-11.0)
--- NOTE | 2020-01-26 12:03 | ED.CHESTPAIN ---
HPI - Chest Pain <Ezekiel IbrahimDarshan [facility] - Last Filed: 01/26/20 22:08> General Chief Complaint: Chest Pain Stated Complaint: CHEST PAINS Time Seen by Provider: 01/26/20 11:51 Source: patient and family Mode of arrival: Wheelchair Limitations: no limitations History of Present Illness HPI narrative: This is a 54 year female, smoker, who presents to ED with left side constant and sharp chest pain from left under the boob to the back, joint pain in bilateral wrist, elbow, shoulder, knee and hip for last 2.5 days. Patient reports difficulty sitting up straight due to pain. Patient also reports swelling in bilateral wrist joints and redness in left wrist and distal arm. Patient denies injury or trauma to affected its joints. Patient denies short of breath, fever, chills, dizziness. Patient reports history of osteoarthritis but denies rheumatoid arthritis. Patient reports her mother had rheumatoid arthritis to. Patient denies hypertension, hyperlipidemia, diabetes. Patient has several orthopedic surgeries in the past. Patient had taken 2 tabs of 400 mg ibuprofen this morning at 10:00 a.m.. Related Data Home Medications Medication Instructions Recorded Confirmed ibuprofen 600 mg PO QID PRN 01/26/20 01/26/20 Previous Rx's Medication Instructions Recorded prednisone 20 mg PO DAILY 5 Days #5 tab 01/26/20 Allergies Allergy/AdvReac Type Severity Reaction Status Date / Time diphenhydramine Allergy Unknown Verified 01/26/20 11:26 lanolin Allergy Unknown Verified 01/26/20 11:26 Review of Systems <Ezekiel IbrahimMargaritodavid [facility] - Last Filed: 01/26/20 22:08> Review of Systems Narrative: General: Denies fever, chills, fatigue, malaise, sweats. HEENT: Denies sinus pain, ear pain, sore throat, difficulty swallowing, dizziness. Respiratory: Denies dyspnea, cough, wheezing, hemoptysis, sputum. Cardiovascular: See HPI Gastrointestinal: Denies nausea, vomiting, abdominal pain, diarrhea, constipation, melena. : Denies dysuria, frequency, incontinence, hematuria, urinary retention. Musculoskeletal: See HPI Skin: See HPI Neurologic: Denies weakness, headache, numbness, change in speech, confusion, seizures, incoordination. Psychiatric: No concerning psychosocial issues. 12-point review of systems is negative except for those stated above. Patient History <JAYLYN Melendez - Last Filed: 01/26/20 22:08> Medical History Hip bursitis, left (Acute) Osteopenia (Acute) Surgical History H/O prior ablation treatment (Acute) Social History Smoking Status: Current every day smoker Smoking Status: Current every day smoker tobacco type: cigarettes and vaping alcohol intake frequency: 3 or more drinks per day Substance Use Type: marijuana Exam <JAYLYN Melendez - Last Filed: 01/26/20 22:08> Narrative Exam Narrative: GEN: Alert, oriented x 3, well appearing and nourished, and in moderate distress from pain. Patient declined to changing position for physical exam and laying on lateral recumbent positions to maintain in most comfort. Head: Normal cephalic, atraumatic. No scalp or temporal tenderness, palpable mass or rash. EYES: Pupils are equal, round, and reactive to light and accommodation. Extraocular muscles are intact bilaterally. There is no subconjunctival hemorrhage, exudate and sclera non-icteric. ENT: Hearing grossly intact. Nose without bleeding, purulent discharge or deviation. Facial sinuses nontender to palpate. Mucous membrane moist, no mucosal lesion. Throat without erythema, tonsillar hypertrophy or exudate. Uvula in midline, airway patent. Neck: Trachea in midline. No JVD, non-tender without lymphadenopathy. No masses or thyroid megaly. Supple, non-tender and no meningeal signs. CARDIAC: Normal regular rate and rhythm without murmurs, gallops, or rubs. No chest wall tenderness. Mild right lower extremity edema without cyanosis or pallor. Capillary refill is less than 2 seconds. RESPIRATORY: Lungs are clear to auscultate bilaterally. No cough, wheezes, rales, or rhonchi. No stridor, respiratory distress, increase work of breathing, or accessary muscle used. ABD: Abdomen soft, nontender and non-distended. No guarding or rebound tenderness to palpate. Bowel sounds are normal in all 4 quadrants. There is no palpable masses or organomegaly. EXT: Mild joint swelling in bilateral wrist. Full but painless ROM in upper and lower extremities in wrists, shoulders, knees with no loss of sensation or effusion. Left wrist and distal arm with mild warmth and erythema. Bilateral knee, ankle without joint effusion, swelling, warmth, or redness. SKIN: Warm, dry, normal color for patient except noted in left wrist. No erythema, lesions or rash over visible areas. BACK: No deformity or crepitance. No flank tenderness. NEUROLOGICAL: Alert and oriented to place, time and person. Sensation and motor function intact bilaterally. No facial droops, dysphasia. PSYCHIATRIC: Good judgement and reason, without hallucinations, abnormal affect or abnormal behaviors during the examination. Patient is not suicidal. Initial Vital Signs Initial Vital Signs: Vital Signs Temperature 99.4 F 01/26/20 11:15 Pulse Rate 100 H 01/26/20 11:15 Respiratory Rate 24 01/26/20 11:15 Blood Pressure 137/88 01/26/20 11:15 Pulse Oximetry 93 01/26/20 11:15 <Kentrell Richard DO - Last Filed: 01/27/20 08:08> Initial Vital Signs Initial Vital Signs: Vital Signs Temperature 99.4 F 01/26/20 11:15 Pulse Rate 100 H 01/26/20 11:15 Respiratory Rate 24 01/26/20 11:15 Blood Pressure 137/88 01/26/20 11:15 Pulse Oximetry 93 01/26/20 11:15 Scores <JAYLYN Melendez - Last Filed: 01/26/20 22:08> GCS [place] coma scale eye opening: Spontaneous [place] coma scale verbal response: Orientated [place] coma scale motor response: Obey commands [place] coma scale total score: 15 HEART Score Heart Score EKG: Normal Heart Score Age: 45-64 years old Heart Score risk factors: No known risk factors Heart Score troponin: < or = to normal limit PERC Score Age greater than or equal to 50 years: Yes Heart rate greater than or equal to 100 bpm: Yes Room Air O2 Sat less than 95%: Yes Unilateral leg swelling: Yes Recent trauma or surgery: No Hemoptysis: No Prior PE or DVT: No Hormone Use: No Total PERC Score: 4 Wells' Criteria for PE Clinical signs and symptoms of DVT: No PE is #1 Dx or equally likely: Yes Heart rate > 100: No Immobilization at least 3 days or surg in previous 4 weeks: No History of PE or DVT: No Hemoptysis: No Malignancy w/Treatment within 6 months or palliative: No Wells' PE Score total: 3 Course <JAYLYN Melendez - Last Filed: 01/26/20 22:08> Orders Ordered: Discontinued Medications Hydromorphone HCl (Dilaudid) 0.5 mg IV NOW ONE Stop: 01/26/20 12:19 Last Admin: 01/26/20 12:24 Dose: 0.5 mg Documented by: LANI Sodium Chloride (Normal Saline 0.9%) 1,000 mls @ 150 mls/hr IV CONT [facility] Last Admin: 01/26/20 12:59 Dose: 150 mls/hr Documented by: LANI Ketorolac Tromethamine (Toradol) 15 mg IV NOW ONE Stop: 01/26/20 12:46 Last Admin: 01/26/20 12:58 Dose: 15 mg Documented by: LANI Ondansetron HCl (Zofran) 4 mg IV NOW ONE Stop: 01/26/20 12:28 Last Admin: 01/26/20 12:29 Dose: 4 mg Documented by: LANI Reevaluation(s) Reevaluation #1: Pain improved after the Dilauidid. Able to take breaths easier. Time: 13:00 Vital Signs Vital signs: Vital Signs - 8 hr 01/26/20 14:30 01/26/20 14:52 01/26/20 15:30 Pulse Rate 91 H 95 H 97 H Respiratory Rate 16 22 18 Blood Pressure [Right Arm] 109/67 106/64 Pulse Oximetry 98 95 94 01/26/20 16:30 Pulse Rate 89 Respiratory Rate 16 Blood Pressure [Right Arm] 106/64 Pulse Oximetry 97 <Kentrell Richard DO - Last Filed: 01/27/20 08:08> Orders Ordered: Discontinued Medications Hydromorphone HCl (Dilaudid) 0.5 mg IV NOW ONE Stop: 01/26/20 12:19 Last Admin: 01/26/20 12:24 Dose: 0.5 mg Documented by: LANI Sodium Chloride (Normal Saline 0.9%) 1,000 mls @ 150 mls/hr IV CONT [facility] Last Admin: 01/26/20 12:59 Dose: 150 mls/hr Documented by: LANI Ketorolac Tromethamine (Toradol) 15 mg IV NOW ONE Stop: 01/26/20 12:46 Last Admin: 01/26/20 12:58 Dose: 15 mg Documented by: LANI Ondansetron HCl (Zofran) 4 mg IV NOW ONE Stop: 01/26/20 12:28 Last Admin: 01/26/20 12:29 Dose: 4 mg Documented by: LANI Vital Signs Vital signs: Vital Signs - 8 hr 01/26/20 14:30 01/26/20 14:52 01/26/20 15:30 Pulse Rate 91 H 95 H 97 H Respiratory Rate 16 22 18 Blood Pressure [Right Arm] 109/67 106/64 Pulse Oximetry 98 95 94 01/26/20 16:30 Pulse Rate 89 Respiratory Rate 16 Blood Pressure [Right Arm] 106/64 Pulse Oximetry 97 MDM - Chest Pain <Ezekiel JAYLYN Soto - Last Filed: 01/26/20 22:08> Differential Diagnosis Differential diagnosis: Likely atypical chest pain, costochondritis and other (Pericarditis, PE, rheumatoid arthritis, osteoarthritis, heart failure) Medical Records Data Attestation: I reviewed the patient's medical records. Lab Data Attestation: I reviewed the patient's lab results. Result diagrams: 01/26/20 11:50 01/26/20 11:50 Labs: Lab Results 01/26/20 01/26/20 01/26/20 Range/Units 11:50 11:50 11:50 WBC 14.4 H (4.5-11.0) X10^3/uL RBC 4.46 (4.0-5.2) X10^6/uL Hgb 14.7 (12.0-16.0) g/dL Hct 41.7 (36-46) % MCV 93.4 (80-100) fL MCH 32.8 (26-34) PG MCHC 35.2 (30-36) % RDW 12.7 (11.6-14.8) % Plt Count 259 (150-400) X10^3/uL Neut % (Auto) 80.9 H (50-75) % Lymph % (Auto) 12.4 L (25-40) % Sargent % (Auto) 5.7 (3-14) % Eos % (Auto) 0.3 L (2-4) % Baso % (Auto) 0.7 (0-2) % Neut # (Auto) 21424 H (8506-0766) /uL Lymph # (Auto) 1800 (5026-8982) /uL Sargent # (Auto) 800 (0-900) /uL Eos # (Auto) 0 (0-450) /uL Baso # (Auto) 100 (0-100) /uL ESR 15 (0-20) MM/HR PT 14.1 H (10.1-12.7) SECONDS INR 1.2 (0.9-1.3) APTT 34 (26.4-36.2) SECONDS D-Dimer (<230) ng/mL Sodium 134 L (137-145) mmol/L Potassium 3.8 (3.4-5.1) mmol/L Chloride 101 (98-107) mmol/L Carbon Dioxide 26 (22-32) mmol/L BUN 8 (7-17) mg/dL Creatinine 0.47 L (0.52-1.04) mg/dL Estimated GFR > 60.0 (>60) mL/min BUN/Creatinine Ratio 17.0 (6-22) Glucose 157 H (70-100) mg/dL Calcium 9.4 (8.4-10.2) mg/dL Total Bilirubin 0.9 (0.2-1.3) mg/dL AST 18 (14-36) IU/L ALT 12 (<35) IU/L Alkaline Phosphatase 123 (38-126) U/L Total Creatine Kinase 34 (30-135) U/L CK-MB (CK-2) TNP CK-MB (CK-2) Rel Index TNP Troponin I < 0.012 (0.01-0.034) ng/mL C-Reactive Protein 20.5 H (<1.0) mg/dL NT-Pro-B Natriuret Pep (<125) pg/mL Total Protein 7.8 (6.3-8.2) g/dL Albumin 4.2 (3.5-5.0) g/dL Globulin 3.6 (1.7-4.1) g/dL Albumin/Globulin Ratio 1.2 (1.0-2.8) Lipase 40 (23-300) U/L 01/26/20 01/26/20 01/26/20 Range/Units 11:50 11:50 14:49 WBC (4.5-11.0) X10^3/uL RBC (4.0-5.2) X10^6/uL Hgb (12.0-16.0) g/dL Hct (36-46) % MCV (80-100) fL MCH (26-34) PG MCHC (30-36) % RDW (11.6-14.8) % Plt Count (150-400) X10^3/uL Neut % (Auto) (50-75) % Lymph % (Auto) (25-40) % Sargent % (Auto) (3-14) % Eos % (Auto) (2-4) % Baso % (Auto) (0-2) % Neut # (Auto) (7974-4480) /uL Lymph # (Auto) (2600-5224) /uL Sargent # (Auto) (0-900) /uL Eos # (Auto) (0-450) /uL Baso # (Auto) (0-100) /uL ESR (0-20) MM/HR PT (10.1-12.7) SECONDS INR (0.9-1.3) APTT (26.4-36.2) SECONDS D-Dimer 608 H (<230) ng/mL Sodium (137-145) mmol/L Potassium (3.4-5.1) mmol/L Chloride (98-107) mmol/L Carbon Dioxide (22-32) mmol/L BUN (7-17) mg/dL Creatinine (0.52-1.04) mg/dL Estimated GFR (>60) mL/min BUN/Creatinine Ratio (6-22) Glucose (70-100) mg/dL Calcium (8.4-10.2) mg/dL Total Bilirubin (0.2-1.3) mg/dL AST (14-36) IU/L ALT (<35) IU/L Alkaline Phosphatase (38-126) U/L Total Creatine Kinase 33 (30-135) U/L CK-MB (CK-2) TNP CK-MB (CK-2) Rel Index TNP Troponin I < 0.012 (0.01-0.034) ng/mL C-Reactive Protein (<1.0) mg/dL NT-Pro-B Natriuret Pep 113 (<125) pg/mL Total Protein (6.3-8.2) g/dL Albumin (3.5-5.0) g/dL Globulin (1.7-4.1) g/dL Albumin/Globulin Ratio (1.0-2.8) Lipase (23-300) U/L Imaging Data Chest x-ray: Radiologist's Impression: [address] [address] XRay Report Signed Patient: Traci Gómez [facility]#: [id number] : 1965Acct:[id number] Age/Sex: 54 / FDate of Service: 01/26/20 Loc: ED Accession Number: [id number] Procedure: XR chest 1V Ordering Provider: Ezekiel Soto PROCEDURE: XR CHEST 1V INDICATIONS: chest pain TECHNIQUE: One view of the chest was acquired. COMPARISON: [facility], , CHEST 2 VIEW, 04/20/2012, 0:18. FINDINGS: Surgical changes and devices: None. Lungs and pleura: Lungs are clear. No pleural effusions or pneumothorax. Mediastinum: Mediastinal contours appear normal. Heart size is borderline enlarged, likely exaggerated by portable technique. Bones and chest wall: No suspicious bony lesions. Overlying soft tissues appear unremarkable. IMPRESSION: No acute cardiopulmonary process is evident. Dictated by: Josh Sarkar M.D. on 01/26/2020 at 11:19 Approved by: Josh Sarkar M.D. on 01/26/2020 at 11:21 CT-PE test: Radiologist's Impression: [address] [address] [address] Scan Report Signed Patient: Traci Gómez [facility]#: [id number] : 1965Acct:[id number] Age/Sex: 54 / FDate of Service: 01/26/20 Loc: ED Accession Number: [id number] Procedure: CT angio chest PE protocol Ordering Provider: Ezekiel Soto PROCEDURE: CT ANGIO CHEST PE PROTOCOL INDICATIONS: chest pain, elevated d dimer, joint pain, r/o PE pericarditi TECHNIQUE: After the administration of intravenous contrast, 2 mm thick sections acquired from the pulmonary apices to the posterior costophrenic angles. 3-dimensional maximum intensity projection (MIP) coronal and sagittal reformats were then acquired through the thorax. For radiation dose reduction, the following was used: automated exposure control, adjustment of mA and/or kV according to patient size. COMPARISON: [facility], CR, XR CHEST 1V, 01/26/2020, 12:00. FINDINGS: Image quality: Excellent. Pulmonary arteries: Pulmonary arteries are normal in size, and demonstrate no intraluminal filling defects to suggest central pulmonary embolism. Lungs and pleura: Mild diffuse ground glass opacity. Minimal peripheral reticular thickening. Right basilar atelectasis. Right upper lobe calcified myeloma. No pleural effusions or pneumothorax. Central and peripheral airways are patent. Mediastinum: Heart size is within normal limits, without pericardial effusion. No mediastinal or hilar adenopathy. Thoracic aorta is normal in caliber and enhancement. Esophagus is normal in caliber, without hiatal hernia. Bones and chest wall: No suspicious bony lesions. Ribs and thoracic spine appear intact throughout. Thyroid gland is unremarkable. No axillary or supraclavicular adenopathy. Abdomen: Hypodense focus in the left lower liver most likely a cyst or hemangioma Visualized upper abdominal solid organs appear normal in the early arterial phase of enhancement. IMPRESSION: 1. No pulmonary embolism. 2. Mild diffuse ground glass opacity and subtle peripheral reticular thickening. Findings suspicious for mild fluid overload. Infectious/inflammatory etiology is felt to be less likely. Dictated by: Vasquez Valverde M.D. on 01/26/2020 at 13:27 Approved by: Vasquez Valverde M.D. on 01/26/2020 at 13:34 ECG Data Attestation: I personally reviewed and interpreted this ECG as follows: Prior ECG tracings: available for review Interpretation: EKG#1 Normal sinus rhythm rate at 99. OK interval 170, QRS duration 80, QT/QTC 364/467. Normal [place]. No ST elevation or depression. MDM Narrative Medical decision making narrative: This is a 54-year-old female who presents to ED with significant other with chief complain of left lower chest pain radiating to back with multiple joint pain and swelling over 2 weeks. Patient denies fever, noted initial temperature of 99.4?. Patient denies fever, chills, short of breath, dizziness and reports increasing pain with movements. Patient has bilateral wrist joint swelling with slight redness on left wrist. Patient also complained of shoulder, elbow, knee pain. Patient reports history of fibromyalgia and osteoarthritis. Patient had taken 800 mg of ibuprofen this morning before coming into ED. Initial EKG was normal sinus rhythm with mildly prolonged QT. Cardiac enzymes were negative. Slight leukocytosis of 14.4 with mildly increased neutrophil. Normal ESR of 15. CRP of 20.5. Mild hyperglycemia of 157. Normal lipase, liver function test, kidney function test. Slightly decreased sodium of 134. Patient reports slight right leg swelling and contributed to recent weight gain. ProBNP was within normal limits of 113. Show acute cardiopulmonary process. Patient received gentle IV hydration while in ED with normal saline. Concerned for pulmonary embolism with PERC score of 4 and Wells criteria for PE with score 3. Chest PE CT test was done and it indicates negative results for PE however it indicates mild diffuse glute ground-glass opacity and minimal peripheral rectal clear thickening with right basilar atelectasis and right upper lobe calcified myeloma without pleural effusions. Indicating suspicious for mild fluid overload and infectious/inflammatory etiologies felt to be last likely. Heart size is within normal limit without pericardial effusion noted. There was a hypodense focus in left lower lid for most likely a cyst or hemangioma. Second EKG was normal sinus rhythm with mildly prolonged QT and cardiac enzymes were negative as well. Covid test is pending. Patient was treated with small dose of Dilaudid, IV Toradol and Zofran which improved patient's symptoms. Findings were discussed with patient and significant other. Patient discharged to home and advised to use NSAIDS for pain management and a short course of low dose of steroids for arthritis pain. Patient advised to follow-up with primary care physician and return precautions were discussed with patient. Patient verbalized understanding and agreement with the treatment plan. <Kentrell Richard, DO - Last Filed: 01/27/20 08:08> Lab Data Labs: Lab Results 01/26/20 01/26/20 01/26/20 Range/Units 11:50 11:50 11:50 WBC 14.4 H (4.5-11.0) X10^3/uL RBC 4.46 (4.0-5.2) X10^6/uL Hgb 14.7 (12.0-16.0) g/dL Hct 41.7 (36-46) % MCV 93.4 (80-100) fL MCH 32.8 (26-34) PG MCHC 35.2 (30-36) % RDW 12.7 (11.6-14.8) % Plt Count 259 (150-400) X10^3/uL Neut % (Auto) 80.9 H (50-75) % Lymph % (Auto) 12.4 L (25-40) % Sargent % (Auto) 5.7 (3-14) % Eos % (Auto) 0.3 L (2-4) % Baso % (Auto) 0.7 (0-2) % Neut # (Auto) 64554 H (9703-0458) /uL Lymph # (Auto) 1800 (8653-8293) /uL Sargent # (Auto) 800 (0-900) /uL Eos # (Auto) 0 (0-450) /uL Baso # (Auto) 100 (0-100) /uL ESR 15 (0-20) MM/HR PT 14.1 H (10.1-12.7) SECONDS INR 1.2 (0.9-1.3) APTT 34 (26.4-36.2) SECONDS D-Dimer (<230) ng/mL Sodium 134 L (137-145) mmol/L Potassium 3.8 (3.4-5.1) mmol/L Chloride 101 (98-107) mmol/L Carbon Dioxide 26 (22-32) mmol/L BUN 8 (7-17) mg/dL Creatinine 0.47 L (0.52-1.04) mg/dL Estimated GFR > 60.0 (>60) mL/min BUN/Creatinine Ratio 17.0 (6-22) Glucose 157 H (70-100) mg/dL Calcium 9.4 (8.4-10.2) mg/dL Total Bilirubin 0.9 (0.2-1.3) mg/dL AST 18 (14-36) IU/L ALT 12 (<35) IU/L Alkaline Phosphatase 123 (38-126) U/L Total Creatine Kinase 34 (30-135) U/L CK-MB (CK-2) TNP CK-MB (CK-2) Rel Index TNP Troponin I < 0.012 (0.01-0.034) ng/mL C-Reactive Protein 20.5 H (<1.0) mg/dL NT-Pro-B Natriuret Pep (<125) pg/mL Total Protein 7.8 (6.3-8.2) g/dL Albumin 4.2 (3.5-5.0) g/dL Globulin 3.6 (1.7-4.1) g/dL Albumin/Globulin Ratio 1.2 (1.0-2.8) Lipase 40 (23-300) U/L 01/26/20 01/26/20 01/26/20 Range/Units 11:50 11:50 14:49 WBC (4.5-11.0) X10^3/uL RBC (4.0-5.2) X10^6/uL Hgb (12.0-16.0) g/dL Hct (36-46) % MCV (80-100) fL MCH (26-34) PG MCHC (30-36) % RDW (11.6-14.8) % Plt Count (150-400) X10^3/uL Neut % (Auto) (50-75) % Lymph % (Auto) (25-40) % Sargent % (Auto) (3-14) % Eos % (Auto) (2-4) % Baso % (Auto) (0-2) % Neut # (Auto) (4127-0251) /uL Lymph # (Auto) (8186-2456) /uL Sargent # (Auto) (0-900) /uL Eos # (Auto) (0-450) /uL Baso # (Auto) (0-100) /uL ESR (0-20) MM/HR PT (10.1-12.7) SECONDS INR (0.9-1.3) APTT (26.4-36.2) SECONDS D-Dimer 608 H (<230) ng/mL Sodium (137-145) mmol/L Potassium (3.4-5.1) mmol/L Chloride (98-107) mmol/L Carbon Dioxide (22-32) mmol/L BUN (7-17) mg/dL Creatinine (0.52-1.04) mg/dL Estimated GFR (>60) mL/min BUN/Creatinine Ratio (6-22) Glucose (70-100) mg/dL Calcium (8.4-10.2) mg/dL Total Bilirubin (0.2-1.3) mg/dL AST (14-36) IU/L ALT (<35) IU/L Alkaline Phosphatase (38-126) U/L Total Creatine Kinase 33 (30-135) U/L CK-MB (CK-2) TNP CK-MB (CK-2) Rel Index TNP Troponin I < 0.012 (0.01-0.034) ng/mL C-Reactive Protein (<1.0) mg/dL NT-Pro-B Natriuret Pep 113 (<125) pg/mL Total Protein (6.3-8.2) g/dL Albumin (3.5-5.0) g/dL Globulin (1.7-4.1) g/dL Albumin/Globulin Ratio (1.0-2.8) Lipase (23-300) U/L Discharge Plan Departure Patient Disposition: Home Clinical Impression: Atypical chest pain Joint pain Qualifiers: Joint pain location: unspecified Qualified Code(s): M25.50 - Pain in unspecified joint Discharge Date/Time: 01/26/20 16:42 Instructions: DI for Atypical Chest Pain, DI for Joint Pain Activity Restrictions/Additional Instructions: You have been diagnosed with [atypical chest pain and joint pain. You were treated with IV Toradol, narcotic medication while in ED with improvement. Two sets of cardiac enzymes were negative. Mildly elevated white count of 14.4. Mildly elevated D-dimer with CT test for pulmonary embolism which was negative but. EKG (2) were normal sinus rhythm with slightly prolonged QT. Chest x-ray was negative for acute findings. BNP was negative. Sodium was mildly decreased to 134. Mildly increased glucose level of 157. Normal ESR with slightly elevated CRP of 20.5. ]. What to do: *Take your medications as directed. Please take NSAIDS such as ibuprofen/Naprosyn/Aleve to decrease inflammation and help with pain with food to decrease GI symptoms. Please start prednisone 20 mg daily for next 5 days. This medication has been transmitted to [facility]. *Follow up with your primary care provider in 2-3 days, call for an appointment. Let them know you were seen in the ED and that we asked you to be seen in follow up. *Return to ED if you have any new, worsening, or concerning symptoms, such as [increasing pain, short of breath, fever, unable to tolerate fluids or any acute concerns.]. Prescriptions: New prednisone 20 mg tablet 20 mg PO DAILY 5 Days Qty: 5 RF: 0 No Action ibuprofen 600 mg Tablet 600 mg PO QID PRN (Reason: Pain (Scale Score 7-10)) RF: 0 Referrals: Vinicio Christine MD [Primary Care Provider] - <Kentrell Richard DO - Last Filed: 01/27/20 08:08> Cosign ED Attending Cosignature Attestation: Dr Richard Co-Sign Statement: I was available for consultation during this patient's emergency department visit. This chart is signed by myself for administrative purposes only. I did not have direct contact with this patient during this visit. They were seen independently by the APC.
[2020-01-26 12:05] LABS: INR 1.2 (0.9-1.3); Prothrombin Time 14.1 SECONDS (10.1-12.7)
[2020-01-26 12:08] LABS: PTT Partial Thromboplastin Tim 34 SECONDS (26.4-36.2)
[2020-01-26 12:11] LABS: Alanine Aminotransferase 12 IU/L (<35); Albumin 4.2 g/dL (3.5-5.0); Albumin Globulin Ratio 1.2 (1.0-2.8); Alkaline Phosphatase 123 U/L (38-126); Aspartate Aminotransferase 18 IU/L (14-36); Bilirubin Total 0.9 mg/dL (0.2-1.3); Blood Urea Nitrogen 8 mg/dL (7-17); Calcium 9.4 mg/dL (8.4-10.2); Carbon Dioxide 26 mmol/L (22-32); Chloride 101 mmol/L (98-107); Creatine Kinase 34 U/L (30-135); Estimated Glomerular Filt Rate > 60.0 mL/min (>60); Globulin 3.6 g/dL (1.7-4.1); Glucose 157 mg/dL (70-100); HEMOLYSIS < 15 (0-50); Lipase 40 U/L (23-300); Potassium 3.8 mmol/L (3.4-5.1); Sodium 134 mmol/L (137-145); Total Protein 7.8 g/dL (6.3-8.2)
[2020-01-26 12:14] LABS: Erythrocyte Sedimentation Rate 15 MM/HR (0-20)
[2020-01-26 12:19] LABS: Troponin I < 0.012 ng/mL (0.01-0.034)
[2020-01-26] MEDS: HYDROMORPHONE 0.5 MG INJ IV (12:24)
[2020-01-26 12:25] LABS: C-Reactive Protein Quant 20.5 mg/dL (<1.0)
[2020-01-26] MEDS: ONDANSETRON 4 MG/2 ML INJ IV (12:29)
[2020-01-26] MEDS: KETOROLAC 60 MG/2 ML VIAL 15 MG IV (12:58)
[2020-01-26] MEDS: SODIUM CHLORIDE 0.9% 1,000 ML 150 ML IV (12:59)
[2020-01-26 13:05] LABS: D Dimer 608 ng/mL (<230)
--- NOTE | 2020-01-26 13:07 | DI.CT.S_ITS ---
PROCEDURE: CT ANGIO CHEST PE PROTOCOL INDICATIONS: chest pain, elevated d dimer, joint pain, r/o PE pericarditi TECHNIQUE: After the administration of intravenous contrast, 2 mm thick sections acquired from the pulmonary apices to the posterior costophrenic angles. 3-dimensional maximum intensity projection (MIP) coronal and sagittal reformats were then acquired through the thorax. For radiation dose reduction, the following was used: automated exposure control, adjustment of mA and/or kV according to patient size. COMPARISON: [facility], CR, XR CHEST 1V, 01/26/2020, 12:00. FINDINGS: Image quality: Excellent. Pulmonary arteries: Pulmonary arteries are normal in size, and demonstrate no intraluminal filling defects to suggest central pulmonary embolism. Lungs and pleura: Mild diffuse ground glass opacity. Minimal peripheral reticular thickening. Right basilar atelectasis. Right upper lobe calcified myeloma. No pleural effusions or pneumothorax. Central and peripheral airways are patent. Mediastinum: Heart size is within normal limits, without pericardial effusion. No mediastinal or hilar adenopathy. Thoracic aorta is normal in caliber and enhancement. Esophagus is normal in caliber, without hiatal hernia. Bones and chest wall: No suspicious bony lesions. Ribs and thoracic spine appear intact throughout. Thyroid gland is unremarkable. No axillary or supraclavicular adenopathy. Abdomen: Hypodense focus in the left lower liver most likely a cyst or hemangioma Visualized upper abdominal solid organs appear normal in the early arterial phase of enhancement. IMPRESSION: 1. No pulmonary embolism. 2. Mild diffuse ground glass opacity and subtle peripheral reticular thickening. Findings suspicious for mild fluid overload. Infectious/inflammatory etiology is felt to be less likely. Dictated by: Vasquez Valverde M.D. on 01/26/2020 at 13:27 Approved by: Vasquez Valverde M.D. on 01/26/2020 at 13:34
[2020-01-26 14:07] LABS: NT-proBNP (BNP-Adult 18+) 113 pg/mL (<125)
[2020-01-26 15:09] LABS: Creatine Kinase 33 U/L (30-135)
[2020-01-26 15:22] LABS: Troponin I < 0.012 ng/mL (0.01-0.034)
[2020-01-27 16:11] LABS: COVID19 Sendout NOT DETECTED (Not Detect)
== END 2020-01-26 16:42 | disposition home or self-care (01) ==
PROVIDERS: Emergency Provider Nurse Practitioner Family; PCP Family Medicine
DX: R07.89 Other chest pain (principal); M25.50 Pain in unspecified joint; R73.9 Hyperglycemia, unspecified
CPT/HCPCS: 36415; 71045; 71275; 80053; 82550; 83690; 83880; 84484; 85025; 85379; 85610; 85651; 85730; 86140; 87635; 93005; 96374; 96375; 99285; J1170; J1885; J2405; Q9967

== ENCOUNTER → 2020-02-09 09:40 | Outpatient (CLI) | payer OTHER, MEDICAID, SELFPAY ==
--- NOTE | 2020-02-09 09:59 | DI.RAD.S_ITS ---
PROCEDURE: XR WRIST RT MIN 3V INDICATIONS: Wrist pain TECHNIQUE: 4 views of the wrist were acquired. COMPARISON: [facility], , WRIST MINIMUM 3 VIEWS RIGHT, 04/08/2017, 20:34. FINDINGS: Bones: No fractures or dislocations. No suspicious bony lesions. First CMC and triscaphe joint degeneration. Diffuse carpal degenerative sclerosis and spurring. Scaphoid view: No fracture Soft tissues: No suspicious soft tissue calcifications. IMPRESSION: Degenerative changes as above. If the patient's pain or other symptoms persist, consider further evaluation with MRI Dictated by: William Sosa M.D. on 02/09/2020 at 12:50 Approved by: William Sosa M.D. on 02/09/2020 at 12:50
[2020-02-09 12:15] LABS: C-Reactive Protein Quant 1.9 mg/dL (<1.0)
[2020-02-09 12:21] LABS: Erythrocyte Sedimentation Rate 39 MM/HR (0-20)
[2020-02-09 12:43] LABS: Rheumatoid Factor < 8.6 IU/mL (<12.0)
[2020-02-12 14:12] LABS: ANA Screen, IFA Negative (.)
== END ==
PROVIDERS: PCP Family Medicine; Referring Provider Family Medicine; Visit Provider Family Medicine
DX: M25.531 Pain in right wrist (principal)
CPT/HCPCS: 36415; 73110; 85651; 86038; 86140; 86430

== ENCOUNTER 2020-04-30 17:26 | Emergency (ER) | payer OTHER, MEDICAID, SELFPAY ==
[2020-04-30] VITALS (11 sets, daily range): BP systolic 169–192; BP diastolic 78–101; PULSE 52–83; RESP 14–19; TEMP 36.2; O2SAT 92–98; BMI 28.5
--- NOTE | 2020-04-30 17:52 | DI.RAD.S_ITS ---
PROCEDURE: XR CHEST 1V INDICATIONS: Chest Pain TECHNIQUE: One view of the chest was acquired. COMPARISON: [facility], CR, XR CHEST 1V, 01/26/2020, 12:00. FINDINGS: Surgical changes and devices: The monitoring wires overlie the chest. Lungs and pleura: Lungs are clear. No pleural effusions or pneumothorax. Mediastinum: Mediastinal contours appear normal. Heart size is normal. Bones and chest wall: No suspicious bony lesions. Overlying soft tissues appear unremarkable. IMPRESSION: Normal chest given overlying wires. Dictated by: Rhianna Snow M.D. on 04/30/2020 at 19:47 Approved by: Rhianna Snow M.D. on 04/30/2020 at 19:47
--- NOTE | 2020-04-30 18:04 | ED.ABDPAIN ---
HPI - Abdominal Pain General Chief Complaint: Abdominal Pain Stated Complaint: N/V Time Seen by Provider: 04/30/20 18:04 Source: patient and family Mode of arrival: Family Vehicle Limitations: no limitations History of Present Illness HPI narrative: 54-year-old woman with fibromyalgia, multiple orthopedic surgeries and arthritis, has not been officially diagnosed with hypertension but has had elevated blood pressures in the past, presents with vomiting and diarrhea. Her symptoms she believes started after she ate some mushrooms on a pizza to who days ago. The mushrooms were wild picked and dried and provided by a friend. Nobody else has eaten those mushrooms. Within 6-8 hours after eating the pizza she began to feel ill and shortly there after the discomfort woke her from sleep and she has been having significant vomiting and diarrhea for the last 24 hours. She describes central/epigastric burning abdominal pain and overall abdominal pain from the physical work of vomiting. She is having no chest pain dyspnea or fevers. No skin changes, she has noted that her feet have been slightly more swollen. She is scheduled for left hip replacement on May 25. Related Data Home Medications Medication Instructions Recorded Confirmed ibuprofen 600 mg PO QID PRN 01/26/20 02/09/20 Previous Rx's Medication Instructions Recorded tramadol 50 mg tablet See Rx Instructions PO Q6H PRN #30 02/10/20 tab Allergies Allergy/AdvReac Type Severity Reaction Status Date / Time diphenhydramine Allergy Severe Hives Verified 04/30/20 17:41 lanolin Allergy Severe Rash Verified 04/30/20 17:41 Review of Systems Review of Systems Narrative: Pertinent positive and negative findings as per HPI Remainder of review of systems is otherwise unremarkable for ENT: No sore throat, neck pain, ear pain Respiratory: Cough, wheeze, dyspnea : Dysuria, hematuria, flank pain MS: numbness, joint swelling or warmth Skin: Rashes, nonhealing lesions Neuro: Syncope, dizziness, tingling Patient History Medical History Hip bursitis, left (Acute) Osteopenia (Acute) Surgical History H/O prior ablation treatment (Acute) Social History Smoking Status: Current every day smoker Smoking Status: Current every day smoker tobacco type: cigarettes and vaping alcohol intake frequency: 3 or more drinks per day Alcohol type: hard liquor Substance Use Type: marijuana Exam Narrative Exam Narrative: General: Healthy appearing, appears ill but no acute distress. HEENT: Moist mucous membranes, normal sclera with reactive pupils, Neck: No JVD, supple Respiratory: Lungs are clear to auscultation, no wheezing no rales no rhonchi. Full and symmetrical air movement Cardiac: Regular rate and rhythm no murmurs no bruits Abdomen: Soft diffusely tender with hypoactive bowel tones, no rebound, no guarding. No flank pain Skin: Warm and dry, no rashes Neurologic: Grossly neurologically intact with no obvious asymmetries or abnormalities Extremities: No trauma, well perfused Psych: Cooperative, appropriate insight and affect Initial Vital Signs Initial Vital Signs: Vital Signs Temperature 97.2 F L 04/30/20 17:34 Pulse Rate 73 04/30/20 17:34 Respiratory Rate 16 04/30/20 17:34 Blood Pressure 185/101 H 04/30/20 17:34 Pulse Oximetry 95 04/30/20 17:34 Course Orders Ordered: ED Orders 04/30/20 17:44 EKG-12 Lead Stat 04/30/20 17:50 Complete Blood Count AUTO DIFF Stat Comprehensive Metabolic Panel Stat Lipase Stat Partial Thromboplastin Time Stat Prothrombin Time INR Stat Troponin & CK Cardiac Panel Stat 04/30/20 17:52 XR chest 1V Stat Discontinued Medications Hydromorphone HCl (Dilaudid) 0.5 mg IV NOW ONE Stop: 04/30/20 20:01 Last Admin: 04/30/20 20:12 Dose: 0.5 mg Documented by: KIRA Sodium Chloride (Normal Saline 0.9%) 1,000 mls @ 1,000 mls/hr IV BOLUS ONE Stop: 04/30/20 19:23 Last Infusion: 04/30/20 20:03 Dose: 0 mls/hr Documented by: Admin: 04/30/20 18:46 Dose: 1,000 mls/hr Documented by: KIRA Sodium Chloride (Normal Saline 0.9%) 1,000 mls @ 1,000 mls/hr IV BOLUS ONE Stop: 04/30/20 20:59 Last Infusion: 04/30/20 21:26 Dose: 0 mls/hr Documented by: Infusion: 04/30/20 20:35 Dose: 1,000 mls/hr Documented by: Infusion: 04/30/20 20:20 Dose: 0 mls/hr Documented by: Admin: 04/30/20 20:12 Dose: 1,000 mls/hr Documented by: KIRA Ondansetron HCl (Zofran) 4 mg IV NOW ONE Stop: 04/30/20 18:25 Last Admin: 04/30/20 18:46 Dose: 4 mg Documented by: KIRA Ondansetron HCl (Zofran Odt Prepack) 1 bottle MISC SEEINSTR ONE Stop: 04/30/20 21:12 Last Admin: 04/30/20 21:26 Dose: 1 bottle Documented by: KIRA Oxycodone/Acetaminophen (Percocet 5/325) 1 tab PO NOW ONE Stop: 04/30/20 21:46 Last Admin: 04/30/20 21:51 Dose: 1 tab Documented by: RAMOS Vital Signs Vital signs: Vital Signs - 8 hr 04/30/20 17:34 04/30/20 17:58 04/30/20 18:00 Temperature 97.2 F L Pulse Rate 73 61 56 L Respiratory Rate 16 14 16 Blood Pressure 185/101 H Pulse Oximetry 95 93 92 04/30/20 18:30 04/30/20 19:07 04/30/20 19:23 Temperature Pulse Rate 60 60 54 L Respiratory Rate 19 18 Blood Pressure 171/78 H Pulse Oximetry 95 98 93 04/30/20 19:30 04/30/20 20:00 04/30/20 20:01 Temperature Pulse Rate 52 L 52 L 53 L Respiratory Rate 18 Blood Pressure 179/86 H 192/92 H Pulse Oximetry 94 96 97 04/30/20 20:30 04/30/20 20:31 Temperature Pulse Rate 83 56 L Respiratory Rate 18 Blood Pressure 169/95 H Pulse Oximetry 98 97 MDM - Abdominal Pain Medical Records Attestation: I reviewed the patient's medical records. Lab Data Attestation: I reviewed the patient's lab results. Result diagrams: 04/30/20 17:50 04/30/20 17:50 Labs: Lab Results 04/30/20 04/30/20 04/30/20 Range/Units 17:50 17:50 17:50 WBC 10.1 (4.5-11.0) X10^3/uL RBC 5.15 (4.0-5.2) X10^6/uL Hgb 16.5 H (12.0-16.0) g/dL Hct 47.6 H (36-46) % MCV 92.5 (80-100) fL MCH 32.1 (26-34) PG MCHC 34.7 (30-36) % RDW 13.2 (11.6-14.8) % Plt Count 263 (150-400) X10^3/uL Neut % (Auto) 72.6 (50-75) % Lymph % (Auto) 22.9 L (25-40) % Chaves % (Auto) 3.3 (3-14) % Eos % (Auto) 0.5 L (2-4) % Baso % (Auto) 0.7 (0-2) % Neut # (Auto) 7300 H (4805-4518) /uL Lymph # (Auto) 2300 (1103-5906) /uL [place]aves # (Auto) 300 (0-900) /uL Eos # (Auto) 100 (0-450) /uL Baso # (Auto) 100 (0-100) /uL PT 11.3 (10.1-12.7) SECONDS INR 1.0 (0.9-1.3) APTT 34 (26.4-36.2) SECONDS Sodium 138 (137-145) mmol/L Potassium 3.8 (3.4-5.1) mmol/L Chloride 100 (98-107) mmol/L Carbon Dioxide 31 (22-32) mmol/L BUN 9 (7-17) mg/dL Creatinine 0.50 L (0.52-1.04) mg/dL Estimated GFR > 60.0 (>60) mL/min BUN/Creatinine Ratio 18.0 (6-22) Glucose 135 H (70-100) mg/dL Calcium 9.6 (8.4-10.2) mg/dL Total Bilirubin 0.8 (0.2-1.3) mg/dL AST 39 H (14-36) IU/L ALT 30 (<35) IU/L Alkaline Phosphatase 125 (38-126) U/L Total Creatine Kinase (30-135) U/L CK-MB (CK-2) CK-MB (CK-2) Rel Index Troponin I (0.01-0.034) ng/mL Total Protein 8.7 H (6.3-8.2) g/dL Albumin 4.6 (3.5-5.0) g/dL Globulin 4.1 (1.7-4.1) g/dL Albumin/Globulin Ratio 1.1 (1.0-2.8) Lipase 50 (23-300) U/L 04/30/20 Range/Units 17:50 WBC (4.5-11.0) X10^3/uL RBC (4.0-5.2) X10^6/uL Hgb (12.0-16.0) g/dL Hct (36-46) % MCV (80-100) fL MCH (26-34) PG MCHC (30-36) % RDW (11.6-14.8) % Plt Count (150-400) X10^3/uL Neut % (Auto) (50-75) % Lymph % (Auto) (25-40) % Chaves % (Auto) (3-14) % Eos % (Auto) (2-4) % Baso % (Auto) (0-2) % Neut # (Auto) (2105-4597) /uL Lymph # (Auto) (6186-3799) /uL Chaves # (Auto) (0-900) /uL Eos # (Auto) (0-450) /uL Baso # (Auto) (0-100) /uL PT (10.1-12.7) SECONDS INR (0.9-1.3) APTT (26.4-36.2) SECONDS Sodium (137-145) mmol/L Potassium (3.4-5.1) mmol/L Chloride (98-107) mmol/L Carbon Dioxide (22-32) mmol/L BUN (7-17) mg/dL Creatinine (0.52-1.04) mg/dL Estimated GFR (>60) mL/min BUN/Creatinine Ratio (6-22) Glucose (70-100) mg/dL Calcium (8.4-10.2) mg/dL Total Bilirubin (0.2-1.3) mg/dL AST (14-36) IU/L ALT (<35) IU/L Alkaline Phosphatase (38-126) U/L Total Creatine Kinase 42 (30-135) U/L CK-MB (CK-2) TNP CK-MB (CK-2) Rel Index TNP Troponin I < 0.012 (0.01-0.034) ng/mL Total Protein (6.3-8.2) g/dL Albumin (3.5-5.0) g/dL Globulin (1.7-4.1) g/dL Albumin/Globulin Ratio (1.0-2.8) Lipase (23-300) U/L Point of care testing: Urine Dip Bedside Urine Glucose 100 mg/dl Bedside Urine Ketone ++ 40 Urine Specific [place] 1.010 Bedside Urine Occult Blood - Negative Bedside Urine pH 9.0 Bedside Urine Protein + 30 Bedside Urine Urobilinogen +/- 1mg Bedside Urine Nitrite - Negative Bedside Urine Leukocytes - Negative Esterase ECG Data Attestation: I personally reviewed and interpreted this ECG as follows: Interpretation: Sinus rhythm at a rate of 68 Normal intervals, normal axis No acute ischemic changes MDM Narrative Medical decision making narrative: Labs reviewed. Findings are most consistent with an acute food-borne gastroenteritis. There is no evidence of acute renal failure or liver failure. No evidence of surgical abdomen, coronary syndrome or GI bleeding. She is safe for home discharge. Discharge Plan Departure Patient Disposition: Home Clinical Impression: Gastroenteritis, Acute dehydration Discharge Date/Time: 04/30/20 21:51 Activity Restrictions/Additional Instructions: Thank you for coming in today I do think that this is a simple gastroenteritis caused most likely by food. I am not seeing any signs of infection, heart attack gallbladder issues or liver problems. Your kidneys are also functioning well. In the emergency room your given 2 L of fluid as well as nausea medicine. I will send you home with additional nausea medicine, Zofran, to use as needed. I would expect that he began feeling better over the next day or so as your able to eat more. If you are getting worse or developing new symptoms you need to return to the emergency department Prescriptions: No Action tramadol 50 mg tablet See Rx Instructions PO Q6H PRN (Reason: pain) Qty: 30 RF: 0 ibuprofen 600 mg Tablet 600 mg PO QID PRN (Reason: Pain (Scale Score 7-10)) RF: 0 Referrals: Vinicio Christine MD [Primary Care Provider] -
[2020-04-30 18:05] LABS: Add Manual Diff / Slide Review NO; Basophils Absolute Auto 100 /uL (0-100); Basophils Percent Auto 0.7 % (0-2); Eosinophils Absolute Auto 100 /uL (0-450); Eosinophils Percent Auto 0.5 % (2-4); Hematocrit 47.6 % (36-46); Hemoglobin 16.5 g/dL (12.0-16.0); Lymphocytes Absolute Auto 2300 /uL (1100-4500); Lymphocytes Percent Auto 22.9 % (25-40); Mean Corpuscular HGB Conc 34.7 % (30-36); Mean Corpuscular Hemoglobin 32.1 PG (26-34); Mean Corpuscular Volume 92.5 fL (80-100); Monocytes Absolute Auto 300 /uL (0-900); Monocytes Percent Auto 3.3 % (3-14); Neutrophils Absolute Auto 7300 /uL (1500-7000); Neutrophils Percent Auto 72.6 % (50-75); Platelet Count 263 X10^3/uL (150-400); Red Blood Cell Count 5.15 X10^6/uL (4.0-5.2); Red Cell Distribution Width 13.2 % (11.6-14.8); White Blood Cell Count 10.1 X10^3/uL (4.5-11.0)
[2020-04-30 18:19] LABS: Prothrombin Time 11.3 SECONDS (10.1-12.7)
[2020-04-30 18:22] LABS: PTT Partial Thromboplastin Tim 34 SECONDS (26.4-36.2)
[2020-04-30 18:24] LABS: Alanine Aminotransferase 30 IU/L (<35); Albumin 4.6 g/dL (3.5-5.0); Albumin Globulin Ratio 1.1 (1.0-2.8); Alkaline Phosphatase 125 U/L (38-126); Aspartate Aminotransferase 39 IU/L (14-36); Bilirubin Total 0.8 mg/dL (0.2-1.3); Blood Urea Nitrogen 9 mg/dL (7-17); Calcium 9.6 mg/dL (8.4-10.2); Carbon Dioxide 31 mmol/L (22-32); Chloride 100 mmol/L (98-107); Estimated Glomerular Filt Rate > 60.0 mL/min (>60); Globulin 4.1 g/dL (1.7-4.1); Glucose 135 mg/dL (70-100); HEMOLYSIS 15 (0-50); Lipase 50 U/L (23-300); Potassium 3.8 mmol/L (3.4-5.1); Sodium 138 mmol/L (137-145); Total Protein 8.7 g/dL (6.3-8.2)
[2020-04-30 18:25] LABS: Creatine Kinase 42 U/L (30-135)
[2020-04-30 18:36] LABS: Troponin I < 0.012 ng/mL (0.01-0.034)
[2020-04-30] MEDS: ONDANSETRON 4 MG/2 ML INJ IV (18:46)
[2020-04-30] MEDS: SODIUM CHLORIDE 0.9% 1,000 ML 1000 ML IV ×2 (18:46→20:12)
[2020-04-30] MEDS: HYDROMORPHONE 0.5 MG INJ IV (20:12)
[2020-04-30] MEDS: ONDANSETRON 4 MG/2 ML INJ (20:32)
[2020-04-30] MEDS: ONDANSETRON 4 MG ODT PREPACK 1 BOTTLE MISC (21:26)
[2020-04-30] MEDS: OXYCODONE/ACETAMINOPHEN 5/325 TABLET 1 TAB PO (21:51)
== END 2020-04-30 21:51 | disposition home or self-care (01) ==
PROVIDERS: Emergency Medicine; Emergency Provider Emergency Medicine; PCP Family Medicine
DX: K52.9 Noninfective gastroenteritis and colitis, unspecified (principal); E86.0 Dehydration; R11.2 Nausea with vomiting, unspecified; I10 Essential (primary) hypertension
CPT/HCPCS: 36415; 71045; 80053; 81003; 82550; 83690; 84484; 85025; 85610; 85730; 93005; 96361; 96374; 96375; 96376; 99284; J1170; J2405

== ENCOUNTER 2022-01-22 17:26 | Emergency (ER) | payer OTHER, MEDICAID, SELFPAY ==
[2022-01-22 17:46] VITALS: BP 154/81; PULSE 103; RESP 20; TEMP 36.8; O2SAT 95; BMI 29.9
--- NOTE | 2022-01-22 17:59 | ED.ALLEREA ---
HPI - Allergic Reaction General Chief complaint: Allergic Reaction Stated complaint: Reaction to artificial nails Time Seen by Provider: 01/22/22 17:47 Source: patient Mode of arrival: Ambulatory History of Present Illness HPI narrative: 48-year-old female he states that in the past she has had a reaction to artificial nails. She stated that she had redness and cracking of her nails in the past. This is several months ago. She has waited a couple months and this time tried to use a ?hypoallergenic artificial nail but she states that as soon as she put them on yesterday she started have redness and tingling. She immediately took them off. It is now been greater than 12 hours and she is having throbbing and redness to the tips of all of her fingers. Related Data Home Medications Medication Instructions Recorded Confirmed ibuprofen 600 mg tablet 600 mg PO QID PRN 01/26/20 02/09/20 Previous Rx's Medication Instructions Recorded tramadol 50 mg tablet See Rx Instructions PO Q6H PRN #30 02/10/20 tab prednisone 20 mg tablet 20 mg PO DAILY 2 Days #2 tab 01/22/22 Allergies Allergy/AdvReac Type Severity Reaction Status Date / Time diphenhydramine Allergy Severe Hives Verified 01/22/22 18:03 lanolin Allergy Severe Rash Verified 01/22/22 18:03 Review of Systems Constitutional Constitutional: Reports system reviewed and no additional complaints, except as documented Musculoskeletal Musculoskeletal: Reports system reviewed and no additional complaints, except as documented and Reports as per HPI Integumentary/Breasts Skin/Breast: Reports system reviewed and no additional complaints, except as documented and Reports as per HPI Allergic/Immunologic Allergic/Immunologic: Reports system reviewed and no additional complaints, except as documented Patient History Medical History (Updated 01/22/22 @ 18:04 by Kentrell Richard DO) Hip bursitis, left Osteopenia Surgical History H/O prior ablation treatment Social History Smoking Status: Current every day smoker Smoking Status: Current every day smoker tobacco type: cigarettes and vaping alcohol intake frequency: 3 or more drinks per day Alcohol type: hard liquor Substance Use Type: marijuana Exam Initial Vital Signs Initial Vital Signs: Vital Signs Temperature 98.3 F 06/05/22 17:46 Pulse Rate 103 H 01/22/22 17:46 Respiratory Rate 20 01/22/22 17:46 Blood Pressure 154/81 H 01/22/22 17:46 Pulse Oximetry 95 01/22/22 17:46 HENMT Head: normal to inspection and normocephalic Skin Other: Patient does have redness mostly on the dorsum of all 10 of her fingers that extends from the nail beds up to the PIP joints. Neuro General: patient alert and patient awake Extrem Other: Mild swelling to the tips of all 10 of her fingers. Course Vital Signs Vital signs: Vital Signs - 8 hr 01/22/22 17:46 Temperature 98.3 F Pulse Rate 103 H Respiratory Rate 20 Blood Pressure 154/81 H Pulse Oximetry 95 MDM - Allergic Reaction MDM Narrative Medical decision making narrative: She states she cannot take Benadryl because she is allergic to this. She has even tried Benadryl cream in the past and has developed hives afterwards. She does appear to be having a reaction. Does involve the tips of all 10 of her fingers. Is located mostly in the dorsum and a goes from the nailbeds up to the PIP joints. It is consistent with having a reaction to her artificial nails that she place yesterday. Will start her on a short course of steroids. She can take Zyrtec and famotidine which she has taken in the past. She was given return precautions. She expressed understanding and agreement. Discharge Plan Departure Patient Disposition: Home Clinical Impression: Allergic reaction Activity Restrictions/Additional Instructions: Take the steroids as directed. You can also take Zyrtec are the generic version of this and also famotidine 1 time a day. Contact her primary doctor for follow-up. Return to the emergency department for any new or worsening symptoms. Prescriptions: New prednisone 20 mg tablet 20 mg PO DAILY 2 Days Qty: 2 0RF No Action tramadol 50 mg tablet See Rx Instructions PO Q6H PRN (Reason: pain) Qty: 30 0RF Rx Instructions: 1-2 tabs PO every 6 hours PRN; ibuprofen 600 mg Tablet 600 mg PO QID PRN (Reason: Pain (Scale Score 7-10)) 0RF Referrals: Vinicio Christine MD [Primary Care Provider] -
[2022-01-22] MEDS: predniSONE 20 MG TABLET PO (18:07)
== END 2022-01-22 18:23 | disposition home or self-care (01) ==
PROVIDERS: Emergency Provider Emergency Medicine; PCP Family Medicine
DX: T78.49XA Other allergy, initial encounter (principal)
CPT/HCPCS: 99283

== ENCOUNTER 2024-01-19 23:12 | Emergency (ER) | payer OTHER, MEDICAID, SELFPAY ==
--- NOTE | 2024-01-19 23:23 | DI.RAD.S_ITS ---
PROCEDURE: XR FOOT LT MIN 3V INDICATIONS: pain after injury TECHNIQUE: 3 views of the foot were acquired. COMPARISON: None. FINDINGS: Bones: No fractures or dislocations. Partially visualized ankle fixation hardware, incompletely evaluated. No suspicious bony lesions. Soft tissues: No tibiotalar joint effusion. Achilles tendon appears normal. IMPRESSION: No acute osseous abnormality. If pain persists with conservative management, consider repeat x-ray in 10-14 days or cross-sectional imaging. Dictated by: Bassem Silver M.D. on 01/19/2024 at 23:41 Approved by: Bassem Silver M.D. on 01/19/2024 at 23:42
--- NOTE | 2024-01-19 23:23 | ED.GENADULT ---
HPI - General Adult General Chief complaint: Extremity Injury, Lower Stated complaint: left toe pain Time Seen by Provider: 01/19/24 23:14 Source: patient Mode of arrival: Ambulatory Limitations: no limitations History of Present Illness HPI narrative: Patient is a 58-year-old female who 2 times over the past 24-48 hours has stubbed her left 2nd and 3rd toes. She has had pain in his area since then. She does use a motorized wheelchair but also walks. She has had some bruising over the 2nd 3rd toes. She was concerned about a fracture. Related Data Home Medications Medication Instructions Recorded Confirmed ibuprofen 600 mg tablet 600 mg PO QID PRN Pain (Scale 01/26/20 02/09/20 Score 7-10) Previous Rx's Medication Instructions Recorded tramadol 50 mg tablet See Rx Instructions PO Q6H PRN 02/10/20 pain #30 tabs Allergies Allergy/AdvReac Type Severity Reaction Status Date / Time diphenhydramine Allergy Severe Hives Verified 01/22/22 18:03 lanolin Allergy Severe Rash Verified 01/22/22 18:03 Review of Systems Musculoskeletal Musculoskeletal: Reports system reviewed and no additional complaints, except as documented Integumentary/Breasts Skin/Breast: Reports system reviewed and no additional complaints, except as documented Neurologic Neurologic: Reports system reviewed and no additional complaints, except as documented Patient History Medical History Hip bursitis, left Osteopenia Surgical History H/O prior ablation treatment Social History Smoking Status: Current every day smoker Smoking Status: Current every day smoker tobacco type: cigarettes and vaping alcohol intake frequency: 3 or more drinks per day Alcohol type: hard liquor Substance Use Type: marijuana Exam Initial Vital Signs Initial Vital Signs: Vital Signs Temperature 97.5 F L 01/19/24 23:24 Pulse Rate 100 H 01/19/24 23:24 Respiratory Rate 16 01/19/24 23:24 Blood Pressure 119/72 01/19/24 23:24 Pulse Oximetry 93 01/19/24 23:24 Oxygen Delivery Method Room Air 01/19/24 23:24 Skin Other: Slight bruising over the 2nd and 3rd toes of the left foot. Extrem Other: Discomfort with palpation of the 2nd 3rd toes and at the MTP joint. Her left foot is unremarkable. Course Orders Ordered: ED Orders 01/19/24 23:23 XR foot LT min 3V Stat Vital Signs Vital signs: Vital Signs - 8 hr 01/19/24 23:24 Temperature 97.5 F L Pulse Rate 100 H Respiratory Rate 16 Blood Pressure 119/72 Pulse Oximetry 93 Oxygen Delivery Method Room Air Medical Decision Making Imaging Data Extremity x-ray #1: Radiologist's Impression: PROCEDURE: XR FOOT LT MIN 3V INDICATIONS: pain after injury TECHNIQUE: 3 views of the foot were acquired. COMPARISON: None. FINDINGS: Bones: No fractures or dislocations. Partially visualized ankle fixation hardware, incompletely evaluated. No suspicious bony lesions. Soft tissues: No tibiotalar joint effusion. Achilles tendon appears normal. IMPRESSION: No acute osseous abnormality. If pain persists with conservative management, consider repeat x-ray in 10-14 days or cross-sectional imaging. MDM Narrative Medical decision making narrative: No fractures were noted on the x-rays. She can ambulate on her foot as tolerated. We did dionte tape the toes together as this maybe helpful. She does have a motorized wheelchair that she can use as needed as well. She was given return precautions. She expressed understanding and agreement. Discharge Plan Departure Patient Disposition: Home Clinical Impression: Contusion of toe of left foot Instructions: DI for Contusion, How to Dionte Tape Activity Restrictions/Additional Instructions: There were no fractures noted on the x-rays. You can walk on your foot as tolerated. Dionte taping maybe helpful. Return to the emergency department for new symptoms. Prescriptions: No Action tramadol 50 mg tablet See Rx Instructions PO Q6H PRN (Reason: pain) Qty: 30 0RF Rx Instructions: 1-2 tabs PO every 6 hours PRN; ibuprofen 600 mg Tablet 600 mg PO QID PRN (Reason: Pain (Scale Score 7-10)) Referrals: Vinicio Christine MD [Primary Care Provider] - Stand Alone Forms: Patient Portal/API
[2024-01-19 23:24] VITALS: BP 119/72; PULSE 100; RESP 16; TEMP 36.4; O2SAT 93; BMI 29.9
[2024-01-19 23:55] VITALS: BP 108/57; PULSE 99; RESP 16; O2SAT 93
== END 2024-01-19 23:57 | disposition home or self-care (01) ==
PROVIDERS: Emergency Provider Emergency Medicine; PCP Family Medicine
DX: S90.122A Contusion of left lesser toe(s) without damage to nail, initial encounter (principal); X58.XXXA Exposure to other specified factors, initial encounter
CPT/HCPCS: 73630; 99281; 99283